=== PATIENT | female | born 1985 | race Two or more races ===

== ENCOUNTER 2017-02-17 13:17 | Emergency (ER) | payer OTHER ==
[~2017-02-17] VITALS: Ht 167.6 cm; Wt 90.7 kg
[2017-02-17 14:30] LABS: Basophils # (auto) 0 uL; Basophils % (auto) 0.4 % (0.0-2.0); CONDITION Y; Eosinophils # (auto) 0.1 uL; Eosinophils % (auto) 1.4 % (0.0-7.0); Hemoglobin 14.4 g/dL (12.2-16.2); Lymphocytes # (auto) 1.3 uL; Lymphocytes % (auto) 12.5 % (10.0-50.0); Mean Corpuscular Hemoglobin 31.3 pg (28.0-32.0); Mean Corpuscular Volume 89.3 fL (80.0-100.0); Monocytes # (auto) 0.4 uL; Monocytes % (auto) 3.5 % (0.0-12.0); Neutrophils # (auto) 8.7 uL; Neutrophils % (auto) 82.2 % (37.0-80.0); Platelet Count (auto) 259 10^3/uL (140-450); Red Cell Distribution Width 12.1 % (11.6-16.0); White Blood Cell 10.5 10^3/uL (4.4-10.8)
[2017-02-17 14:59] LABS: Albumin 3.4 g/dL (3.4-5.0); BUN/Creatinine Ratio 21.2; Bilirubin, Total 0.9 mg/dL (0.2-1.0); Calcium 8.1 mg/dL (8.5-10.1); Total Protein 7.4 g/dL (6.4-8.2)
[2017-02-17 16:34] LABS: Urine Bilirubin Negative (Negative); Urine Blood TRACE /uL (Negative); Urine Color Yellow (Yellow); Urine Nitrite Negative (Negative); Urine RBC <1 /hpf (0 - 4); Urine Squamous Epithelial Cell FEW /hpf (<5); Urine Urobilinogen Normal (Negative)
[2017-02-17 16:44] LABS: Urine Glucose 4+ mg/dL (Normal); Urine Ketone 1+ (Negative)
[2017-02-17] MEDS ORDERED: SODIUM CHLORIDE 0.9% 1,000 ML IV ONE (17:15)
[2017-02-17] MEDS ORDERED: InsuLIN REG 1unit/0.01ml Soln (100units/ml) IV ONE (17:15)
[2017-02-17] MEDS ORDERED: InsuLIN REG 1unit/0.01ml Soln (100units/ml) SC ONE (17:15)
[2017-02-17 20:05] VITALS: BP 126/80
== END 2017-02-17 20:54 | disposition home or self-care (01) ==
LOC: ER 13:17 → EDBD 13:17 → ER 20:54
DX: E10.65 Type 1 diabetes mellitus with hyperglycemia (principal); I10 Essential (primary) hypertension; F41.9 Anxiety disorder, unspecified; Z79.4 Long term (current) use of insulin
CPT/HCPCS: 36415; 80053; 81001; 81025; 82962; 85025; 96361; 96374; 99285; J1815; J7030

== ENCOUNTER 2017-06-23 10:39 | Emergency (ER) | payer OTHER ==
[~2017-06-23] VITALS: Ht 167.6 cm; Wt 108.9 kg
[2017-06-23 15:29] LABS: Urine Bilirubin Negative (Negative); Urine Blood Negative /uL (Negative); Urine Color Yellow (Yellow); Urine Glucose Normal (Normal); Urine Ketone Negative (Negative); Urine Nitrite Negative (Negative); Urine RBC <1 /hpf (0 - 4); Urine Squamous Epithelial Cell FEW /hpf (<5); Urine pH 5.5 (5.0-8.0)
[2017-06-23 15:39] LABS: Basophils # (auto) 0.1 uL; Basophils % (auto) 0.9 % (0.0-2.0); Eosinophils # (auto) 0.2 uL; Eosinophils % (auto) 1.7 % (0.0-7.0); Hematocrit 41.3 % (36.0-46.0); Hemoglobin 14.3 g/dL (12.2-16.2); Lymphocytes # (auto) 2.1 uL; Lymphocytes % (auto) 20.4 % (10.0-50.0); Mean Corpuscular Hemoglobin 31.7 pg (28.0-32.0); Mean Corpuscular Hgb Conc. 34.7 g/dL (32.0-36.0); Mean Corpuscular Volume 91.2 fL (80.0-100.0); Mean Platelet Volume 8.7 fL (6.9-10.8); Monocytes # (auto) 0.7 uL; Monocytes % (auto) 6.7 % (0.0-12.0); Neutrophils # (auto) 7.4 uL; Neutrophils % (auto) 70.3 % (37.0-80.0); Nucleated Red Blood Cells % 0.1 %; Platelet Count (auto) 270 10^3/uL (140-450); Red Cell Distribution Width 12.4 % (11.8-14.3); White Blood Cell 10.5 10^3/uL (4.4-10.8)
[2017-06-23 15:54] LABS: BUN/Creatinine Ratio 18.8; Calcium 9.3 mg/dL (8.5-10.1); Potassium 3.6 mmol/L (3.5-5.1)
[2017-06-23] MEDS ORDERED: SODIUM CHLORIDE 0.9% 1,000 ML IV ONE (15:56)
[2017-06-23 16:40] VITALS: BP 148/94
[2017-06-23 16:44] LABS: Albumin 3.6 g/dL (3.4-5.0); Bilirubin, Direct 0.3 mg/dL (0-0.2); Bilirubin, Total 0.7 mg/dL (0.2-1.0); Magnesium 1.9 mg/dL (1.6-2.6); Total Protein 8.6 g/dL (6.4-8.2)
[2017-06-23 16:51] LABS: INR 0.9 (0.9-1.15); Partial Thromboplastin Time 25.2 sec (22.64-33.71); Prothrombin Time 9.8 sec (9.37-12.3)
== END 2017-06-23 17:40 | disposition home or self-care (01) ==
LOC: ER 10:39
DX: E10.649 Type 1 diabetes mellitus with hypoglycemia without coma (principal); I10 Essential (primary) hypertension; E03.9 Hypothyroidism, unspecified; R74.8 Abnormal levels of other serum enzymes; Z94.4 Liver transplant status
CPT/HCPCS: 36415; 71020; 80048; 80076; 81001; 81025; 83735; 84443; 85025; 85610; 85730; 94761; 96360; 99285; J7030

== ENCOUNTER 2017-08-25 22:37 | Inpatient (IN) | payer OTHER ==
[~2017-08-25] VITALS: Ht 167.6 cm; Wt 118.5 kg
[2017-08-26] MEDS ORDERED: InsuLIN REG 1unit/0.01ml Soln (100units/ml) IV ONE (00:45)
[2017-08-26] MEDS ORDERED: SODIUM CHLORIDE 0.9% 1,000 ML IV ONE (00:45)
[2017-08-26 01:46] LABS: Hematocrit 37.6 % (36.0-46.0); Hemoglobin 12.4 g/dL (12.2-16.2); Mean Corpuscular Hemoglobin 30.4 pg (28.0-32.0); Mean Corpuscular Hgb Conc. 33.1 g/dL (32.0-36.0); Platelet Count (auto) 278 10^3/uL (140-450); Red Blood Cells 4.09 10^6/uL (4.0-5.20); White Blood Cell 28.3 10^3/uL (4.4-10.8)
[2017-08-26 01:52] LABS: Basophils % (manual) 0 (0.0-2.0); Blast Cells 0; Eosinophils % (manual) 0 (0-7); Metamyelocytes % 0; Myelocytes % 0; Promyelocytes % 0; Reactive Lymphocytes 0
[2017-08-26 01:58] LABS: Albumin 2.9 g/dL (3.4-5.0); Calcium 8.3 mg/dL (8.5-10.1); Potassium 4.5 mmol/L (3.5-5.1)
[2017-08-26 02:00] LABS: BUN/Creatinine Ratio 12.7
[2017-08-26] MEDS ORDERED: cefTRIAXone 1GM/10ml IVPUSH 10 ML IV ONE (02:00)
[2017-08-26 02:21] LABS: Band Neutrophils % (manual) 15; Lymphocytes % (manual) 4 (10.0-50.0); Monocytes % (manual) 5 (0-12)
[2017-08-26 02:42] LABS: Urine Bacteria FEW /hpf (None Seen); Urine Blood Negative /uL (Negative); Urine Hyaline Cast MOD /lpf (0 - 2); Urine Mucus FEW (None Seen); Urine WBC 17 /hpf (0 - 5)
[2017-08-26 02:50] LABS: Lactic Acid w/Reflex 2.6 mmol/L (0.4-2.0)
[2017-08-26 03:07] LABS: Total Protein 7.6 g/dL (6.4-8.2)
[2017-08-26] MEDS ORDERED: cefTRIAXone SOD 1,000 MG VL ONE (03:08)
[2017-08-26] MEDS ORDERED: ONDANSETRON HCL 4 MG/2 ML VIAL IV ONE (05:00)
[2017-08-26] MEDS ORDERED: ACETAMINOPHEN 500 MG TAB PO PRN (05:15)
[2017-08-26] MEDS ORDERED: DEXTROSE (50%) 50ML SYRG IV PRN (05:15)
[2017-08-26] MEDS ORDERED: MORPHINE SULFATE 4 MG/ML SYR/VIAL IV PRN (05:15)
[2017-08-26] MEDS ORDERED: NITROGLYCERIN 0.4 MG SL TAB SL PRN (05:15)
[2017-08-26] MEDS ORDERED: METOCLOPRAMIDE HCL 5MG/ml INJ 2ml VIAL IV PRN (05:15)
[2017-08-26] MEDS ORDERED: HYDROcodone-ACET 5/325MG TAB PO PRN (05:15)
[2017-08-26] MEDS ORDERED: SODIUM CHLORIDE 0.9% 2,000 ML IV ONE (05:15)
[2017-08-26] MEDS ORDERED: LORazepam 2MG/ML-1ML VIAL ONE (07:42)
[2017-08-26] MEDS: ACCU-CHEK COMFORT CURVE STRIP VI SCH ×4 (09:41→20:00)
[2017-08-26] MEDS: SODIUM CHLORIDE 0.9% 1,000 ML IV SCH ×2 (09:41→16:59)
[2017-08-26] MEDS: PIPERACILLIN-TAZOB 3.375GM 50 ML IV SCH ×3 (09:41→20:41)
[2017-08-26] MEDS: InsuLIN REG 1unit/0.01ml Soln (100units/ml) SC SCH ×4 (09:48→21:06)
[2017-08-26] MEDS: TACROLIMUS 1 MG CAP PO SCH ×2 (12:26→20:49)
[2017-08-26] MEDS ORDERED: AZITHROMYCIN 500MG/ 250ML 250 ML IV ONE (15:15)
[2017-08-26 16:00] VITALS: BP 127/75
[2017-08-26 16:40] VITALS: BP 127/75
[2017-08-26] MEDS: Boost Glucose Control 8 Ounces PO SCH (18:39)
[2017-08-26 20:00] VITALS: BP 136/82
[2017-08-26] MEDS ORDERED: cefTRIAXone 1GM/10ml IVPUSH 10 ML IV SCH (21:00)
[2017-08-26] MEDS ORDERED: BENA20TA14 PO (21:08)
[2017-08-26] MEDS ORDERED: BENA10TA9 PO (21:08)
[2017-08-26 23:01] VITALS: BP 136/82
[2017-08-26] MEDS ORDERED: TACR5CAP3 PO (23:20)
[2017-08-26] MEDS ORDERED: TACR1CAP4 PO (23:20)
[2017-08-26] MEDS ORDERED: INSLANTI SC (23:20)
[2017-08-26] MEDS ORDERED: INSUINJ18 SC (23:20)
[2017-08-27] MEDS: ACCU-CHEK COMFORT CURVE STRIP VI SCH ×4 (00:07→11:37)
[2017-08-27] MEDS: InsuLIN REG 1unit/0.01ml Soln (100units/ml) SC SCH ×4 (00:08→11:38)
[2017-08-27] MEDS: PIPERACILLIN-TAZOB 3.375GM 50 ML IV SCH ×2 (02:09→08:33)
[2017-08-27] MEDS: SODIUM CHLORIDE 0.9% 1,000 ML IV SCH ×2 (04:07→13:15)
[2017-08-27 05:47] VITALS: BP 125/70
[2017-08-27 07:14] LABS: Basophils # (auto) 0 uL; Basophils % (auto) 0.2 % (0.0-2.0); Eosinophils # (auto) 0.1 uL; Eosinophils % (auto) 0.8 % (0.0-7.0); Hematocrit 35.1 % (36.0-46.0); Hemoglobin 11.8 g/dL (12.2-16.2); Lymphocytes # (auto) 1.4 uL; Lymphocytes % (auto) 8.2 % (10.0-50.0); Mean Corpuscular Hemoglobin 30.7 pg (28.0-32.0); Mean Corpuscular Hgb Conc. 33.7 g/dL (32.0-36.0); Mean Corpuscular Volume 91.2 fL (80.0-100.0); Monocytes # (auto) 0.8 uL; Monocytes % (auto) 4.6 % (0.0-12.0); Neutrophils # (auto) 14.5 uL; Neutrophils % (auto) 86.2 % (37.0-80.0); Nucleated Red Blood Cells % 0.1 %; Platelet Count (auto) 280 10^3/uL (140-450); Red Blood Cells 3.85 10^6/uL (4.0-5.20); Red Cell Distribution Width 12.6 % (11.8-14.3); White Blood Cell 16.8 10^3/uL (4.4-10.8)
[2017-08-27 07:40] LABS: Albumin 2.4 g/dL (3.4-5.0); BUN/Creatinine Ratio 20.5; Bilirubin, Total 0.8 mg/dL (0.2-1.0); Calcium 8.2 mg/dL (8.5-10.1); Potassium 3.7 mmol/L (3.5-5.1); Total Protein 7.1 g/dL (6.4-8.2)
[2017-08-27] MEDS: Boost Glucose Control 8 Ounces PO SCH ×2 (08:24→11:38)
[2017-08-27 08:54] VITALS: BP 124/83
[2017-08-27] MEDS ORDERED: AZITHROMYCIN 500MG/ 250ML 250 ML IV SCH (10:00)
[2017-08-27] MEDS ORDERED: PROMETHAZINE W/CODEINE 5 ML ORAL SYRUP PO PRN (10:15)
[2017-08-27] MEDS ORDERED: AZITHROMYCIN 250 MG TAB PO SCH (11:00)
[2017-08-27] MEDS: TACROLIMUS 1 MG CAP PO SCH (11:30)
[2017-08-27 11:57] VITALS: BP 131/71
[2017-08-27 12:45] VITALS: BP 131/71
[2017-08-27 13:03] VITALS: BP 131/71
== END 2017-08-27 13:40 | disposition home or self-care (01) | DRG 720 ==
LOC: ER 22:38 → TELE 22:39 → TELE-CENTR 08-26 15:42
PROVIDERS: ADMIT Nurse Practitioner Family; ATTEND Internal Medicine
DX: A41.9 Sepsis, unspecified organism (principal); N17.0 Acute kidney failure with tubular necrosis; E10.10 Type 1 diabetes mellitus with ketoacidosis without coma; E44.0 Moderate protein-calorie malnutrition; Z94.4 Liver transplant status; N18.4 Chronic kidney disease, stage 4 (severe); J18.1 Lobar pneumonia, unspecified organism; E10.21 Type 1 diabetes mellitus with diabetic nephropathy; E87.1 Hypo-osmolality and hyponatremia; Z68.41 Body mass index [BMI] 40.0-44.9, adult; E66.9 Obesity, unspecified; J02.9 Acute pharyngitis, unspecified; E86.0 Dehydration; I12.9 Hypertensive chronic kidney disease with stage 1 through stage 4 chronic kidney disease, or unspecified chronic kidney disease; E10.22 Type 1 diabetes mellitus with diabetic chronic kidney disease; N39.0 Urinary tract infection, site not specified; Z82.49 Family history of ischemic heart disease and other diseases of the circulatory system; Z83.3 Family history of diabetes mellitus
CPT/HCPCS: 36415; 74176; 76775; 80053; 81001; 81025; 82010; 82962; 83036; 83605; 84443; 85007; 85025; 85027; 87040; 87086; 87400; 93005; 96361; 96374; 96375; J0696; J1815; J2405; J2543; J7507

== ENCOUNTER 2018-12-03 08:25 | Inpatient (IN) | payer OTHER | END 2018-12-05 19:30 | disposition home or self-care (01) | LOC: ER 08:25 → TELE 14:52 → TELE-EAST 17:30 | DX: A41.9 Sepsis, unspecified organism (principal); N17.0 Acute kidney failure with tubular necrosis; Z94.4 Liver transplant status; E13.9 Other specified diabetes mellitus without complications; E03.9 Hypothyroidism, unspecified; I10 Essential (primary) hypertension; K52.9 Noninfective gastroenteritis and colitis, unspecified; E87.1 Hypo-osmolality and hyponatremia; N39.0 Urinary tract infection, site not specified; E66.01 Morbid (severe) obesity due to excess calories; Z68.41 Body mass index [BMI] 40.0-44.9, adult ==

== ENCOUNTER 2020-01-31 16:26 | Inpatient (IN) | payer OTHER ==
[~2020-01-31] VITALS: Ht 167.6 cm; Wt 116.0 kg
[2020-01-31] MEDS: MIDAZOLAM DRIP 50 mg/50mL 50 ML IV SCH (01:07)
[2020-01-31] MEDS: PROPOFOL 100 ML IV SCH (01:08)
[2020-01-31] MEDS: SODIUM CHLORIDE 0.9% 1,000 ML IV SCH ×3 (03:00→21:09)
[~2020-01-31 16:26] MED LIST: INSLANTI SC; INSUINJ18 SC; LEVO75TA6; TACR1CAP4 PO; TACR5CAP3 PO
[2020-01-31] MEDS ORDERED: SODIUM CHLORIDE 0.9% 1,000 ML IV ONE ×2 (17:30→18:45)
[2020-01-31] MEDS ORDERED: SODIUM CHLORIDE 0.9% 1,000 ML IVB ONE (17:48)
[2020-01-31 17:49] LABS: Urine Bacteria MOD /hpf (None Seen); Urine Blood 1+ /uL (Negative); Urine Budding Yeast MANY /hpf (None Seen); Urine Specific Gravity 1.022 (1.001-1.035); Urine WBC 52 /hpf (0 - 5)
[2020-01-31 18:04] LABS: Hematocrit 45.9 % (36.0-46.0); Hemoglobin 13.9 g/dL (12.2-16.2); Mean Corpuscular Hgb Conc. 30.4 g/dL (32.0-36.0); Platelet Count (auto) 445 10^3/uL (140-450); Red Cell Distribution Width 15.3 % (11.8-14.3); White Blood Cell 21.9 10^3/uL (4.4-10.8)
[2020-01-31 18:07] LABS: Basophils % (manual) 0 (0.0-2.0); Blast Cells 0; Eosinophils % (manual) 0 (0-7); Promyelocytes % 0; Reactive Lymphocytes 0
[2020-01-31 18:20] LABS: Albumin 3.2 g/dL (3.4-5.0)
[2020-01-31 18:31] LABS: BUN/Creatinine Ratio 21.9; Bilirubin, Total 2.2 mg/dL (0.2-1.0); Total Protein 8.2 g/dL (6.4-8.2)
[2020-01-31 18:34] LABS: Potassium 6.1 mmol/L (3.5-5.1)
[2020-01-31] MEDS ORDERED: SODIUM CHLORIDE 0.9% 1,000 ML IV SCH ×2 (18:35→22:35)
[2020-01-31] MEDS ORDERED: InsuLIN R (HUMAN) 100 UNITS in SODIUM CHL 0.9% 99 ML IV SCH ×5 (18:35→21:09)
[2020-01-31] MEDS ORDERED: DEXTROSE (50%) 50ML SYRG IV PRN ×2 (18:45→21:15)
[2020-01-31] MEDS ORDERED: cefTRIAXone 1GM/50ML D5W 50 ML IV ONE (18:45)
[2020-01-31] MEDS ORDERED: SODIUM BICARBONATE 8.4 % INJ 50ML VIAL IV ONE ×3 (19:00→21:45)
[2020-01-31] MEDS ORDERED: SODIUM BICARBONATE 8.4% INJ 50ML SYRINGE ONE (19:03)
[2020-01-31] MEDS ORDERED: ACCU-CHEK COMFORT CURVE STRIP VI SCH (19:30)
[2020-01-31 19:40] LABS: Band Neutrophils % (manual) 6; Lymphocytes % (manual) 7 (10.0-50.0); Metamyelocytes % 1; Monocytes % (manual) 2 (0-12); Myelocytes % 2
[2020-01-31] MEDS ORDERED: HYDROcodone-ACET 5/325MG TAB PO PRN (21:15)
[2020-01-31] MEDS ORDERED: NITROGLYCERIN 0.4 MG SL TAB SL PRN (21:15)
[2020-01-31] MEDS ORDERED: MORPHINE SULF INJ 2 MG/ML SYRINGE 1ML IV PRN ×2 (21:15)
[2020-01-31] MEDS ORDERED: ACETAMINOPHEN 325 MG TAB PO PRN (21:15)
[2020-01-31] MEDS ORDERED: ONDANSETRON HCL 4 MG/2 ML VIAL IV PRN (21:15)
[2020-01-31] MEDS ORDERED: DOCUSATE SOD 100 MG CAP PO PRN (21:15)
[2020-01-31] MEDS ORDERED: INSULIN LANTUS (GLARGINE) 1 /0.01ml (100units/ml) SC SCH (22:00)
[2020-01-31 22:14] LABS: Hematocrit 43.3 % (36.0-46.0); Mean Corpuscular Hemoglobin 31.3 pg (28.0-32.0); Mean Corpuscular Volume 104.3 fL (80.0-100.0); Platelet Count (auto) 479 10^3/uL (140-450); Red Blood Cells 4.15 10^6/uL (4.0-5.20); Red Cell Distribution Width 15.7 % (11.8-14.3); White Blood Cell 28.3 10^3/uL (4.4-10.8)
[2020-01-31 22:20] LABS: Basophils % (manual) 0 (0.0-2.0); Blast Cells 0; Eosinophils % (manual) 0 (0-7); Metamyelocytes % 0; Promyelocytes % 0; Reactive Lymphocytes 0
[2020-01-31] MEDS: ACCU-CHEK COMFORT CURVE STRIP VI SCH (22:30)
[2020-01-31 22:35] LABS: Anion Gap 26 (5-15); BUN/Creatinine Ratio 22.9; Blood Urea Nitrogen 35 mg/dL (7-18); Calcium 8.5 mg/dL (8.5-10.1); Chloride 93 mmol/L (98-107); GFR African American 50 mL/min; GFR Non-African American 41 mL/min; Magnesium 2.3 mg/dL (1.6-2.6); Sodium 125 mmol/L (136-145)
[2020-01-31 22:58] LABS: Phosphorus 6.7 mg/dL (2.5-4.90)
[2020-01-31 22:59] LABS: Potassium 5.8 mmol/L (3.5-5.1)
[2020-01-31 23:00] LABS: Carbon Dioxide 6 mmol/L (21-32); Glucose 635 mg/dL (74-106)
[2020-01-31] MEDS ORDERED: SUCCINYLCHOLINE CHLORIDE 20 MG/ML 10ML VIAL IV ONE (23:15)
[2020-01-31] MEDS ORDERED: ETOMIDATE (2MG/ML) 20ML VIAL IV ONE (23:15)
[2020-01-31 23:19] LABS: Band Neutrophils % (manual) 5; Lymphocytes % (manual) 2 (10.0-50.0); Monocytes % (manual) 4 (0-12); Myelocytes % 2
--- NOTE | 2020-01-31 23:30 | NUR ---
Respiratory note: PT PLACED ON BIPAP B7 AT THIS TIME DUE TO INCREASED WOB POST ABG RESULTS, PT REFUSING INTUBATION AT THIS TIME. BIPAP PLUGGED INTO RED OUTLET, ALARMS ON AND AUDIBLE, AMBU BAG AND MASK AT BEDSIDE. PT FITTED WITH A SIZE MEDIUM FULL FACE MASK, NO SKIN BREAKDOWN NOTED. PT RR NOTED AT 39, DR. MENCHACA AWARE. PT BS DIMINISHED. PT STATES MASK FIT IS COMFORTABLE. PT MADE AWARE OF THE NEED FOR EMERGENT INTUBATION IF RESPIRATORY STATUS DOES NOT IMPROVE, DR. MENCHACA EXPLAINED PLAN OF CARE TO PT. PT AGREED ON INTUBATION IF RESPIRATORY STATUS DOES NOT IMPROVE OR WOB INCREASES. RN AWARE OF CARE PLAN. PT ON CONT BEDSIDE MONITORING, WILL CONTINUE TO MONITOR ORDERED, REPEAT ABG IN ONE HOUR.
[2020-02-01] VITALS (80 sets, daily range): BP systolic 94–154; BP diastolic 46–160
[2020-02-01] MEDS ORDERED: SODIUM BICARBONATE 50ML VIAL 50 ML in SOD CHL 0.45% 1,000 ML IV ONE ×2
--- NOTE | 2020-02-01 00:32 | NUR ---
Respiratory note: PAGED TO BEDSIDE, PT'S RESPIRATORY STATUS NOT IMPROVING. AT BEDSIDE TO PREPARE FOR INTUBATION.
[2020-02-01] MEDS ORDERED: SODIUM CHLORIDE 0.9% 1,000 ML IV SCH ×3 (00:35→03:09)
--- NOTE | 2020-02-01 00:45 | NUR ---
Respiratory note: PT ASKED FOR JELLO PRIOR TO INTUBATION, I TOLD PT SHE COULD NOT EAT PRIOR TO INTUBATION DUE TO RISK OF VOMITING. DR. MENCHACA GAVE THE PATIENT YELLOW JELLO, STATED TO WAIT FOR PT TO FINISH EATING BEFORE INTUBATION. PT SITTING UP IN BED EATING, NO RESPIRATORY DISTRESS NOTED AT THIS TIME, AT BEDSIDE, ON STANDBY FOR INTUBATION.
[2020-02-01] MEDS ORDERED: SODIUM BICARBONATE 8.4% INJ 50ML SYRINGE ONE (00:53)
--- NOTE | 2020-02-01 01:05 | NUR ---
Respiratory note: PT INTUBATED VIA GLIDESCOPE ON SECOND ATTEMPT. AFTER FIRST ATTEMPT, PT VOMITED UP JELLO/WATER. PT MOUTH SUCTIONED, CLEAR/YELLOW THIN SECRETIONS NOTED UPON RETURN. PT INTUBATED WITH A 7.5 ETT SECURED WITH YANNICK AT 24CM, RADIOLOGY WILL RETURN TO BEDSIDE FOR CHEST XRAY AFTER CENTRAL LINE PLACEMENT. PT BS CLEAR/COARSE, SUCTIONED SMALL THIN CLEAR/YELLOW/ORANGE SECRETIONS. SPUTUM SENT TO LAB. ABG TO FOLLOW IN ONE HOUR.
[2020-02-01] MEDS ORDERED: NOREPINEPHRINE 8 MG/250ML KIT 250 ML IV ONE (01:59)
[2020-02-01] MEDS: NOREPINEPHRINE 8 MG/250ML KIT 250 ML IV SCH (02:00)
--- NOTE | 2020-02-01 02:05 | NUR ---
Respiratory note: ET TUBE RETRACTED 4CM AFTER REVIEWING CHEST XRAY, RN AWARE. ET TUBE NOW AT 20CM AT THE LOWER LIP, BILATERAL BS HEARD THROUGHOUT LUNG STILL, LUNG VOLUMES ON VENTILATOR SATISFACTORY.
[2020-02-01] MEDS: ACCU-CHEK COMFORT CURVE STRIP VI SCH ×16 (02:30→22:26)
--- NOTE | 2020-02-01 02:38 | NUR ---
Respiratory note: ABG RESULTS REPORTED TO DR. MENCHACA. NO NEW RESPIRATORY ORDERS GIVEN AT THIS TIME. FIO2 TITRATED TO 60%.
[2020-02-01] MEDS: SODIUM CHLORIDE 0.9% 1,000 ML IV SCH ×5 (03:00→23:00)
--- NOTE | 2020-02-01 03:00 | NUR ---
RN RECEIVED PATIENT FROM ER. PATIENT WITH ETT TUBE 7.5/ 20CM LL. OG TUBE IN PLACE, CLAMPED AND PLACEMENT VERIFIED. PATIENT CURRENTLY RESTING IN BED AND RUNNING INSULIN DRIP, BICARB, PROPOFOL, VERSED. LINEN CHANGE AND BED BATH PROVIDED UPON ARRIVAL. PATIENT TOLERATED NURSING INTERVENTIONS WELL.
[2020-02-01] MEDS ORDERED: InsuLIN REG 1unit/0.01ml Soln (100units/ml) ONE (03:19)
--- NOTE | 2020-02-01 04:00 | NUR ---
HOSPITALIST PAGED TO CLARIFY IV FLUID ORDERS.
[2020-02-01 04:40] LABS: Basophils # (auto) 0.1 10 ^3/uL (0-0.2); Basophils % (auto) 0.7 % (0.0-2.0); Eosinophils # (auto) 0 10 ^3/uL (0-0.8); Eosinophils % (auto) 0.1 % (0.0-7.0); Hematocrit 37.5 % (36.0-46.0); Hemoglobin 12.5 g/dL (12.2-16.2); Lymphocytes # (auto) 1.2 10 ^3/uL (0.4-5.4); Lymphocytes % (auto) 6.3 % (10.0-50.0); Mean Corpuscular Hemoglobin 30.9 pg (28.0-32.0); Mean Corpuscular Hgb Conc. 33.3 g/dL (32.0-36.0); Mean Corpuscular Volume 92.6 fL (80.0-100.0); Monocytes # (auto) 0.7 10 ^3/uL (0-1.3); Monocytes % (auto) 3.3 % (0.0-12.0); Neutrophils # (auto) 17.6 10 ^3/uL (1.6-8.6); Neutrophils % (auto) 89.6 % (37.0-80.0); Nucleated Red Blood Cells % 0.1 %; Platelet Count (auto) 386 10^3/uL (140-450); Red Blood Cells 4.05 10^6/uL (4.0-5.20); Red Cell Distribution Width 14.3 % (11.8-14.3); White Blood Cell 19.6 10^3/uL (4.4-10.8)
[2020-02-01 04:41] LABS: Calcium 7.7 mg/dL (8.5-10.1)
[2020-02-01 04:43] LABS: BUN/Creatinine Ratio 27.6
--- NOTE | 2020-02-01 05:07 | NUR ---
HOSPITALIST PAGED BACK. IV FLUID ORDERS VERIFIED.
[2020-02-01 05:39] LABS: Cholesterol 280 mg/dL (< 200)
[2020-02-01 05:42] LABS: HDL Cholesterol 48 mg/dL (40-59); LDL Cholesterol 173 mg/dL (< 100); Triglycerides 293 mg/dL (< 150)
--- NOTE | 2020-02-01 05:49 | NUR ---
[employer] Teacher took patient's belonging to safe which included fishman and debit cards and wallet.
--- NOTE | 2020-02-01 07:30 | NUR ---
ACCU CHECK DONE BLOOD SUGAR WAS 204, INSULIN DRIP DECREASED TO 2 UNITS/HR.
--- NOTE | 2020-02-01 09:00 | NUR ---
ACCU CHECK DONE BLOOD SUGAR WAS 209, INSULIN DRIP REMAINS AT 2 UNITS/HR.
[2020-02-01 09:30] LABS: BUN/Creatinine Ratio 24.8; Calcium 7.5 mg/dL (8.5-10.1); Potassium 3.6 mmol/L (3.5-5.1)
[2020-02-01] MEDS ORDERED: INSULIN LANTUS (GLARGINE) 1 /0.01ml (100units/ml) SC SCH (10:00)
--- NOTE | 2020-02-01 10:30 | NUR ---
ACCU CHECK DONE BLOOD SUGAR WAS 225, INSULIN DRIP AT 4 UNITS/HR.
[2020-02-01] MEDS ORDERED: InsuLIN R (HUMAN) 100 UNITS in SODIUM CHL 0.9% 99 ML IV SCH ×2 (10:36→15:40)
[2020-02-01] MEDS: PROPOFOL 100 ML IV SCH (10:46)
[2020-02-01] MEDS: MIDAZOLAM DRIP 50 mg/50mL 50 ML IV SCH ×3 (10:47→15:49)
--- NOTE | 2020-02-01 11:12 | NUR ---
Consult If EN Support indicated consider Glucerna @ 55ml/hr, if BERNARDINO resolves and propofol rate decreases consider increasing rate to 65 ml/hr per MD approval Est energy needs 0034-1600 kcal (14-18 kcal/kg BW 115.3kg) Est protein 69-92g (0.6-0.8g/kg BW 115kg r/t elevated RFTs) Will reassess prn. Addendum: 02/01/20 at [address] Amended: Links added.
--- NOTE | 2020-02-01 12:00 | NUR ---
ACCU CHECK DONE BLOOD SUGAR WAS 196, INSULIN DRIP AT 3 UNITS/HR.
[2020-02-01] MEDS ORDERED: FLUCONAZOLE 200MG/100ML 100 ML IV ONE (13:00)
[2020-02-01] MEDS ORDERED: FAMOTIDINE (10MG/ML) 2ML VL IV ONE ×2 (13:00→13:45)
--- NOTE | 2020-02-01 13:16 | NUR ---
WOUND CARE NOTE: Wound care in to see patient per wound care request regarding low Kamron score of 10 and intubation status, putting patient to high risk for skin breakdown. Patient is 34 years old female with admitting diagnosis of DKA, Severe Metabolic Encephalopathy and Htn. Patient is resting in ICU bed in Rm. 112. Patient is intubated, sedated and mechanically ventilated. Patient appears to be in no pain using [place] Yates Faces Pain Scale. Skin assessment done with the assistance of patient's nurse, GELY Dhillon. NO wound noted, no pressure injury noted. Staff initiated cleaning and application of Barrier cream to sacral buttocks and Opti foam sacral dressing to upper sacrum as preventative. Patient tolerated well, repositioned for comfort facing her Rt. side, redistributed pressure points with pillows and elevated BLE on pillows. RECOMMENDATION: Nursing to continue with BID/PRN cleaning and application of Barrier cream to sacral, buttocks as preventative, Dietary consult, frequent turning and repositioning schedule as condition permits, redistribute pressure points with pillows, elevate heels on pillows, continue monitoring by wound care while patient is mechanically ventilated. Addendum: 02/01/20 at 1425 by Fatoumata Zaragoza RN Amended: Links added.
--- NOTE | 2020-02-01 13:30 | NUR ---
ACCU CHECK DONE BLOOD SUGAR WAS 213, INSULIN DRIP AT 4 UNITS/HR.
[2020-02-01] MEDS ORDERED: ENOXAPARIN SOD 40 MG/0.4 ML SYRINGE SC ONE (13:45)
[2020-02-01] MEDS ORDERED: TACROLIMUS 1 MG CAP PO ONE (13:45)
[2020-02-01] MEDS: PIPERACILLIN-TAZOB 3.375GM 100 ML IV SCH ×2 (13:46→22:00)
--- NOTE | 2020-02-01 15:00 | NUR ---
ACCU CHECK DONE BLOOD SUGAR WAS 184, INSULIN DRIP AT 5 UNITS/HR. PATIENT CURRENTLY ON ALGORITHM #3
[2020-02-01 15:24] LABS: BUN/Creatinine Ratio 20.3; Calcium 7.4 mg/dL (8.5-10.1); Potassium 3.3 mmol/L (3.5-5.1)
--- NOTE | 2020-02-01 16:30 | NUR ---
ACCU CHECK DONE BLOOD SUGAR WAS 130, INSULIN DRIP AT 3 UNITS/HR. PATIENT CURRENTLY ON ALGORITHM #3
[2020-02-01 18:03] LABS: Urine Bacteria MANY /hpf (None Seen); Urine Blood 2+ /uL (Negative); Urine Budding Yeast LOADED /hpf (None Seen); Urine Specific Gravity 1.013 (1.001-1.035); Urine WBC 388 /hpf (0 - 5)
[2020-02-01] MEDS: POTASSIUM CHL 20MEQ/100ML 100 ML IV SCH ×2 (19:00→21:00)
--- NOTE | 2020-02-01 19:00 | NUR ---
Opening shift note: Primary RN Huy received report on patient. Pt intubated ETT 7.5/20cm@LL, vent settings: AC 14/TV 500, FIO2 30%/PEEP 5, O2 SAT 100%, bilateral lung sounds diminished. Central line right IJ 3 lumen, infusing Insulin drip @ 2, NS @ 100, Propofol @ 30, Versed @ 15, Levo @ 4. OG tube clamped, placement checked. Mccallum catheter draining via gravity with yellow urine. Temp 99.1, rectal probe in place. Safety precautions in place. Will continue to monitor.
--- NOTE | 2020-02-01 21:57 | NUR ---
IV removal IV to left hand DC'd d/t infiltration with sterile technique, catheter fully intact. Pressure dressing applied to site. Patient tolerated procedure well.
[2020-02-01] MEDS: TACROLIMUS 1 MG CAP PO SCH (21:59)
[2020-02-01] MEDS: FAMOTIDINE (10MG/ML) 2ML VL IV SCH (21:59)
[2020-02-02] VITALS (99 sets, daily range): BP systolic 86–149; BP diastolic 44–89
[2020-02-02] MEDS: NOREPINEPHRINE 8 MG/250ML KIT 250 ML IV SCH
[2020-02-02] MEDS: ACCU-CHEK COMFORT CURVE STRIP VI SCH ×11 (01:30→18:02)
--- NOTE | 2020-02-02 03:00 | NUR ---
Bed bath: Patient was given a bed bath with a linen change. Patient tolerated nursing interventions well.
[2020-02-02 04:17] LABS: Basophils # (auto) 0.1 10 ^3/uL (0-0.2); Basophils % (auto) 1.3 % (0.0-2.0); Eosinophils # (auto) 0.1 10 ^3/uL (0-0.8); Eosinophils % (auto) 1.3 % (0.0-7.0); Hematocrit 36.1 % (36.0-46.0); Lymphocytes # (auto) 1.8 10 ^3/uL (0.4-5.4); Lymphocytes % (auto) 16.6 % (10.0-50.0); Mean Corpuscular Hemoglobin 30.5 pg (28.0-32.0); Mean Corpuscular Hgb Conc. 33.1 g/dL (32.0-36.0); Monocytes # (auto) 0.7 10 ^3/uL (0-1.3); Monocytes % (auto) 6.7 % (0.0-12.0); Neutrophils # (auto) 8.2 10 ^3/uL (1.6-8.6); Neutrophils % (auto) 74.1 % (37.0-80.0); Platelet Count (auto) 328 10^3/uL (140-450); Red Blood Cells 3.93 10^6/uL (4.0-5.20)
[2020-02-02 04:37] LABS: INR 0.91 (0.9-1.15); Partial Thromboplastin Time 25.1 sec (23.64-32.05)
[2020-02-02 04:40] LABS: Potassium 3.8 mmol/L (3.5-5.1)
[2020-02-02] MEDS: MIDAZOLAM DRIP 50 mg/50mL 50 ML IV SCH ×4 (04:42→21:00)
[2020-02-02] MEDS: PROPOFOL 100 ML IV SCH ×4 (04:42→21:00)
[2020-02-02 04:48] LABS: Albumin 2.1 g/dL (3.4-5.0); BUN/Creatinine Ratio 18.5; Bilirubin, Total 1.4 mg/dL (0.2-1.0); Calcium 7.8 mg/dL (8.5-10.1); Total Protein 6.1 g/dL (6.4-8.2)
[2020-02-02] MEDS: PIPERACILLIN-TAZOB 3.375GM 100 ML IV SCH ×3 (05:48→21:35)
--- NOTE | 2020-02-02 08:00 | NUR ---
INSULIN GTT Blood glucose 151 increased Insulin GTT to 4UNITS=4mls per protocol.
[2020-02-02] MEDS: SODIUM CHLORIDE 0.9% 1,000 ML IV SCH ×2 (09:00→19:00)
--- NOTE | 2020-02-02 09:19 | NUR ---
INSULIN GTT Blood glucose 133, Insulin GTT decreased to 3UNITS=3mls per protocol.
[2020-02-02] MEDS: ENOXAPARIN SOD 40 MG/0.4 ML SYRINGE SC SCH (09:42)
[2020-02-02] MEDS: FAMOTIDINE (10MG/ML) 2ML VL IV SCH ×2 (09:42→21:35)
[2020-02-02] MEDS: TACROLIMUS 1 MG CAP PO SCH ×2 (09:43→21:35)
[2020-02-02] MEDS ORDERED: FLUCONAZOLE 200MG/100ML 100 ML IV SCH (10:00)
--- NOTE | 2020-02-02 10:30 | NUR ---
INSULIN GTT Blood glucose 136, Insulin GTT continues at current rate of 3 UNITS= 3Ml per protocol.
[2020-02-02] MEDS ORDERED: INSULIN LANTUS (GLARGINE) 1 /0.01ml (100units/ml) SC ONE (11:15)
--- NOTE | 2020-02-02 12:00 | NUR ---
INSULIN GTT Blood glucose 123, INSULIN GTT continues to infuse at current rate per protocol.
--- NOTE | 2020-02-02 13:30 | NUR ---
INSULIN GTT INSULIN GTT turned off and blood glucose 117.
[2020-02-02] MEDS ORDERED: DEXTROSE (50%) 50ML SYRG IV PRN (13:45)
--- NOTE | 2020-02-02 14:00 | NUR ---
MD Dr. Nash at bedside updated on patient condition with new orders, MD to input into system.
--- NOTE | 2020-02-02 15:50 | NUR ---
FAMILY Received phone call from patients mother, correct password provided and updated on patient condition.
[2020-02-02] MEDS: InsuLIN REG 1unit/0.01ml Soln (100units/ml) SC SCH (18:04)
--- NOTE | 2020-02-02 19:00 | NUR ---
Opening shift note: Primary RN Huy received report on patient. Pt intubated ETT 7.5/20cm@LL, vent settings: AC 14/TV 500, FIO2 30%/PEEP 5, O2 SAT 100%, bilateral lung sounds diminished. Central line right IJ 3 lumen, infusing, NS @ 100, Propofol @ 15, Versed @ 8. OG tube clamped, placement checked. Mccallum catheter draining via gravity with yellow urine. Temp 98.6, rectal probe in place. Safety precautions in place. Will continue to monitor.
--- NOTE | 2020-02-02 19:27 | NUR ---
Family: RN spoke with patient's mother and password was verified. Patient's mother was given an update and was also asked about patient's history of having a liver transplant. Per Madeline (Mother), patient developed severe inflammation of her liver and her liver began to fail and a liver transplant was required. Per the mother, the patient never acquired any form of hepatitis as a child or adult, nor does she recall the patient developing any form of infection when the liver transplant was deemed necessary.
--- NOTE | 2020-02-02 20:40 | NUR ---
Rectal probe changed. RN changed patient's rectal probe due to in accurate readings. Patient was noted to have a temp of 98.8 and suddenly drop to 97.3. RN changed probe and patient tolerated nursing intervention well with no s/s of discomfort or distress.
[2020-02-03] VITALS (91 sets, daily range): BP systolic 93–168; BP diastolic 48–94
[2020-02-03] MEDS: ACCU-CHEK COMFORT CURVE STRIP VI SCH ×3 (00:08→14:28)
[2020-02-03] MEDS: InsuLIN REG 1unit/0.01ml Soln (100units/ml) SC SCH ×3 (00:11→14:29)
[2020-02-03] MEDS: NOREPINEPHRINE 8 MG/250ML KIT 250 ML IV SCH (02:00)
--- NOTE | 2020-02-03 04:00 | NUR ---
Linen change performed. Patient tolerated interventions well with no s/s of discomfort or distress.
[2020-02-03 04:23] LABS: Basophils # (auto) 0.1 10 ^3/uL (0-0.2); Basophils % (auto) 0.9 % (0.0-2.0); Eosinophils # (auto) 0.1 10 ^3/uL (0-0.8); Eosinophils % (auto) 1.3 % (0.0-7.0); Hemoglobin 11.8 g/dL (12.2-16.2); Lymphocytes # (auto) 1.5 10 ^3/uL (0.4-5.4); Lymphocytes % (auto) 21.1 % (10.0-50.0); Mean Corpuscular Hemoglobin 31.6 pg (28.0-32.0); Mean Corpuscular Hgb Conc. 33.7 g/dL (32.0-36.0); Mean Corpuscular Volume 93.6 fL (80.0-100.0); Monocytes # (auto) 0.4 10 ^3/uL (0-1.3); Monocytes % (auto) 6.4 % (0.0-12.0); Neutrophils # (auto) 4.9 10 ^3/uL (1.6-8.6); Neutrophils % (auto) 70.3 % (37.0-80.0); Platelet Count (auto) 259 10^3/uL (140-450); Red Blood Cells 3.74 10^6/uL (4.0-5.20)
[2020-02-03 04:46] LABS: Calcium 7.8 mg/dL (8.5-10.1); Potassium 3.5 mmol/L (3.5-5.1)
[2020-02-03 04:50] LABS: BUN/Creatinine Ratio 16.3; Bilirubin, Total 1.2 mg/dL (0.2-1.0); Total Protein 5.9 g/dL (6.4-8.2)
[2020-02-03] MEDS: SODIUM CHLORIDE 0.9% 1,000 ML IV SCH (05:00)
[2020-02-03] MEDS: PIPERACILLIN-TAZOB 3.375GM 100 ML IV SCH ×3 (05:17→21:49)
[2020-02-03] MEDS: FAMOTIDINE (10MG/ML) 2ML VL IV SCH ×2 (09:44→21:49)
[2020-02-03] MEDS: FLUCONAZOLE 200MG/100ML 100 ML IV SCH ×2 (09:44→11:04)
[2020-02-03] MEDS: ENOXAPARIN SOD 40 MG/0.4 ML SYRINGE SC SCH (09:45)
[2020-02-03] MEDS: TACROLIMUS 1 MG CAP PO SCH ×2 (09:46→21:49)
[2020-02-03] MEDS ORDERED: LABETALOL HCL 5 MG/ML 4ML SYRINGE IV PRN (11:30)
--- NOTE | 2020-02-03 12:00 | NUR ---
TEMPERATURE Patients temperature reached 100.4 Tylenol given as ordered by .
--- NOTE | 2020-02-03 12:10 | NUR ---
RESPIRATORY RT Sylvie at bedside placed patient on CPAP mode patient tolerating well sating 100%. Will continue to monitor patient.
--- NOTE | 2020-02-03 12:10 | NUR ---
INITIATED CPAP TRIAL PT IS MORE AWAKE/ALERT AND FOLLOWS SIMPLE COMMANDS. INITIATED CPAP TRIAL ORDERED. PT TOLERATING WELL, HR 92, RR 24, SPO2 100%, BP 150/87. NO S/S OF RESPIRATORY DISTRESS NOTED. ABG TO FOLLOW IN ONE HOUR. NOTIFIED RN OF CHANGES. WILL CONTINUE TO MONITOR.
--- NOTE | 2020-02-03 12:40 | NUR ---
FAMILY Received phone call from patients sister Aminata, correct password provided and updated on patient condition.
--- NOTE | 2020-02-03 13:30 | NUR ---
TEMPERATURE Patients temperature reached 100.8 cooling measures applied.
--- NOTE | 2020-02-03 13:40 | NUR ---
WEANING PARAMETERS OBTAINED: NIF -33, VC 961ML, RSBI 56, LEAK 44ML. ABG DRAWN AND RESULTS OBTAINED. PAGED DR MARIE TO REPORT RESULTS, AWAITING CALL BACK.
[2020-02-03] MEDS ORDERED: EPINEPHrine HCL 0.5 ML NEB NEB ONE (14:15)
--- NOTE | 2020-02-03 14:55 | NUR ---
EXTUBATED Pt was extubated per Dr. Corley's orders, with RN Alecia at bedside. Extubated to cool mist aerosol mask, FIO2 30%. HR 101, RR 25, SPO2 100%, BP 150/85. No stridor noted. No s/s of respiratory distress noted.
--- NOTE | 2020-02-03 14:55 | NUR ---
RESPIRATORY RT Sylvie at bedside extubated patient per MD orders. Patient placed on cool mist mask with no stridor. Sating 100%. Will continue to monitor patient.
--- NOTE | 2020-02-03 15:50 | NUR ---
Nutrition Followup Notes Pt wt is 125.2 kg Pt's intubated on mech vent, currently NPO, sedation cancelled d/t scheduled CPAP trial. Noted pt was extubated, CPAP trial well tolerated. Will continue to closely monitor pertinent labs, PO intake and skin status prn. Will followup in 2-3 days Est energy needs 6791-9638 kcal (14-18 kcal/kg BW 115.3kg) Est protein 69-92g (0.6-0.8g/kg BW 115kg r/t elevated RFTs) Will reassess prn. LABS: CL 113 H, GLUC 178 H, CA 7.8 L, ALB 2.0 L GI: No BM Noted BS: 10 high risk. Please refer to wound assessment report for full details. PES: Problem Altered nutrition related labs r/t current and chronic medical conditions aeb elevated RFTs, hyperglycemia Malnutrition related to morbid BMI> or equal to 40 Malnutrition related to morbid obesity Yes Comments 1) Continue to monitor po status, lab, skin 2) If EN Support initiated consider Glucerna @ 55ml/hr, if BERNARDINO resolves and propofol rate decreases consider increasing rate to 65 ml/hr per MD approval 3) Refer pt to CDE on dc 4) Continue current plan of care
--- NOTE | 2020-02-03 16:00 | NUR ---
MENSTRUAL Patients menstrual started, manuel care provided and partial linen change done with the assistance of [facility] special investigation unit investigator.Patient tolerated well. Cooling measure re-applied.
--- NOTE | 2020-02-03 16:34 | NUR ---
Still no stridor noted. Took pt off cool aerosol, placed on 2lpm nasal cannula, SPO2 100%. No s/s of respiratory distress noted.
--- NOTE | 2020-02-03 16:34 | NUR ---
RESPIRATORY RT Sylvie at bedside placed patient on nasal cannula at 2 liters: sating 100%, will continue to monitor patient.
--- NOTE | 2020-02-03 17:15 | NUR ---
assessment Patient is a 34 year old female on vent in ICU. Per patients uncle Jaren prior to admission patient lived home with family and functioned with assistance. Per Jaren patients blood sugars were out of control and patients sister drove her to ER and patient was admitted. I informed Jaren patients post discharge needs to be determined after extubation and prior to discharge. Jaren verbalized understanding. Addendum: 02/03/20 at 1717 by Katlyn [place] Amended: Links added.
--- NOTE | 2020-02-03 19:00 | NUR ---
Opening Shift Note: Assumed care of patient, awake and alert to self at this time, patient able to answer closed ended questions. No S/S of distress/SOB or pain. Instructed on POC and to call for assist PRN, will continue to monitor for changes Q1hr and PRN.
--- NOTE | 2020-02-03 20:00 | NUR ---
Family: Patient's mom "Madeline" called, password verified. Madeline was given an update on patient condition. All questions and concerns answered.
--- NOTE | 2020-02-03 20:30 | NUR ---
Rectal temp: Patient's rectal temp was noted to be reading 100.8. Patient felt very cool. RN took an oral temp and received a reading of 98.6. Rectal probe was removed. Patient was repositioned for comfort.
--- NOTE | 2020-02-03 21:00 | NUR ---
Dinner: Patient was able to tolerate three spoons of food and 100mL of her milk. Patient did not have any difficulty swallowing at this time.
[2020-02-03] MEDS: MIDAZOLAM DRIP 50 mg/50mL 50 ML IV SCH (23:08)
[2020-02-03] MEDS: PROPOFOL 100 ML IV SCH (23:08)
[2020-02-04] VITALS (29 sets, daily range): BP systolic 108–152; BP diastolic 63–98
[2020-02-04] MEDS: NOREPINEPHRINE 8 MG/250ML KIT 250 ML IV SCH (01:46)
--- NOTE | 2020-02-04 03:00 | NUR ---
Bed bath: Patient awake and alert. With assistance from a female nurse who was present, Primary RN and female RN provided manuel care d/t patient on her menstrual cycle, linen change was also provided. Patient tolerated interventions well with no s/s of discomfort or distress.
--- NOTE | 2020-02-04 03:14 | NUR ---
Patient is becoming more alert and able to speak more. Patient asked RN where her purse was and that she had money in her purse. RN informed patient that during her admission into ICU, her ID's and money was placed into the hospital safe to prevent loss and that her cloth she came in with is at bedside in the hospital dresser. Patient verbalized understanding.
[2020-02-04 04:07] LABS: Basophils # (auto) 0.1 10 ^3/uL (0-0.2); Basophils % (auto) 1.1 % (0.0-2.0); Eosinophils # (auto) 0.1 10 ^3/uL (0-0.8); Eosinophils % (auto) 1.5 % (0.0-7.0); Hematocrit 36.3 % (36.0-46.0); Hemoglobin 12.2 g/dL (12.2-16.2); Lymphocytes # (auto) 1.3 10 ^3/uL (0.4-5.4); Lymphocytes % (auto) 19.6 % (10.0-50.0); Mean Corpuscular Hemoglobin 30.9 pg (28.0-32.0); Mean Corpuscular Hgb Conc. 33.5 g/dL (32.0-36.0); Monocytes # (auto) 0.4 10 ^3/uL (0-1.3); Monocytes % (auto) 5.7 % (0.0-12.0); Neutrophils # (auto) 4.9 10 ^3/uL (1.6-8.6); Neutrophils % (auto) 72.1 % (37.0-80.0); Nucleated Red Blood Cells % 0.1 %; Platelet Count (auto) 247 10^3/uL (140-450); Red Blood Cells 3.94 10^6/uL (4.0-5.20); Red Cell Distribution Width 14.2 % (11.8-14.3); White Blood Cell 6.7 10^3/uL (4.4-10.8)
[2020-02-04 04:30] LABS: Albumin 2.1 g/dL (3.4-5.0); BUN/Creatinine Ratio 10.1; Calcium 8.3 mg/dL (8.5-10.1); Potassium 3.1 mmol/L (3.5-5.1)
[2020-02-04 04:33] LABS: Bilirubin, Total 1.5 mg/dL (0.2-1.0); Total Protein 6.5 g/dL (6.4-8.2)
--- NOTE | 2020-02-04 05:15 | NUR ---
Hospitalist paged: Hospitalist paged regarding patient having a low potassium. RN awaiting call back.
[2020-02-04] MEDS: PIPERACILLIN-TAZOB 3.375GM 100 ML IV SCH (05:33)
[2020-02-04] MEDS: ACCU-CHEK COMFORT CURVE STRIP VI SCH ×5 (05:52→23:51)
[2020-02-04] MEDS: InsuLIN REG 1unit/0.01ml Soln (100units/ml) SC SCH ×5 (05:53→23:53)
--- NOTE | 2020-02-04 05:57 | NUR ---
Hospitalist returned page: Hospitalist returned call and was updated on patient condition and situation. New orders obtained and verified.
[2020-02-04] MEDS: POTASSIUM CHL 20MEQ/100ML 100 ML IV SCH ×2 (06:00→08:00)
[2020-02-04] MEDS ORDERED: POTASSIUM CHL 20MEQ/100ML 200 ML IV ONE (06:06)
--- NOTE | 2020-02-04 08:30 | NUR ---
NUTRITION Breakfast tray given to patient and patient was able to eat independently about 25%.
[2020-02-04] MEDS: ENOXAPARIN SOD 40 MG/0.4 ML SYRINGE SC SCH (10:00)
[2020-02-04] MEDS: FLUCONAZOLE 200MG/100ML 100 ML IV SCH ×2 (10:00→11:00)
[2020-02-04] MEDS: FAMOTIDINE (10MG/ML) 2ML VL IV SCH (10:00)
[2020-02-04] MEDS: TACROLIMUS 1 MG CAP PO SCH (10:00)
--- NOTE | 2020-02-04 10:30 | NUR ---
OUTPUT Emptied Mccallum catheter drained 800ml of clear yellow urine.
--- NOTE | 2020-02-04 11:00 | NUR ---
MD Dr. Corley paged for downgrade per [place] ICU director.
--- NOTE | 2020-02-04 11:07 | NUR ---
MD Dr. Corley called back and states " Okay to downgrade patient to Telemetry."
--- NOTE | 2020-02-04 11:45 | NUR ---
GANG TAILER any [employer] housekeeper assigned bed 292B with Sowmya HONG.
--- NOTE | 2020-02-04 12:20 | NUR ---
REPORT Report given to Sowmya HONG, who will continue plan of care once patient arrives to room 292B.
--- NOTE | 2020-02-04 12:25 | NUR ---
FAMILY Received phone call from patients mother, correct password provided and updated on patient condition. Mother is aware of transfer to room 292B.
--- NOTE | 2020-02-04 12:45 | NUR ---
Received patient from ICU Patient resting in bed no signs or symptoms of distress noted at this time. Patient is on room air, respirations even and unlabored. Bed in low and locked position, call light within reach. Will continue to monitor Q1 hour and PRN.
--- NOTE | 2020-02-04 14:30 | NUR ---
Clemons catheter dc'd Order to discontinue clemons catheter. Clemons dc'd with clean technique following deflation of balloon. Patient tolerated well with no complaints of pain. Continue care.
--- NOTE | 2020-02-04 16:00 | NUR ---
Pharmacy requesting clarification Pharmacy requesting dosage clarification for Tacrolimus. Per patient she takes Prograf 2mg PO BID. Pharmacy has been notified.
[2020-02-04] MEDS ORDERED: TACR1CAP4 PO ×2 (17:28)
[2020-02-04] MEDS ORDERED: INSU100I26 (17:28)
[2020-02-04] MEDS ORDERED: INSLANTI SC (17:28)
[2020-02-04] MEDS ORDERED: METF-372 (17:28)
[2020-02-04] MEDS ORDERED: BENA40TA7 (17:28)
[2020-02-04] MEDS ORDERED: TACROLIMUS 1 MG CAP PO SCH (18:00)
[2020-02-04] MEDS ORDERED: INSULIN LANTUS (GLARGINE) 1 /0.01ml (100units/ml) SC SCH (22:00)
[2020-02-05 05:00] VITALS: BP 135/97
--- NOTE | 2020-02-05 06:00 | NUR ---
Patient voided after Cmcallum removal Voided 250 ml of tea colored urine into bedpan. Patient unable to ambulate at this time. Patient tolerated well with no c/o burning or difficulty with urination. Changed bedding and sanitary napkin.
[2020-02-05] MEDS: ACCU-CHEK COMFORT CURVE STRIP VI SCH ×2 (06:57→12:23)
[2020-02-05] MEDS: InsuLIN REG 1unit/0.01ml Soln (100units/ml) SC SCH ×2 (06:58→12:23)
[2020-02-05] MEDS ORDERED: LEVOTHYROXINE SODIUM 25 MCG TAB PO SCH (07:00)
[2020-02-05] MEDS ORDERED: TACROLIMUS 1 MG CAP PO SCH (07:00)
--- NOTE | 2020-02-05 07:35 | NUR ---
Opening Shift Note: Assumed care of patient, awake and alert. No S/S of distress/SOB or pain. Bed in lowest locked position, side rails up x 2, call light within reach. Patient instructed on POC and to call for assist PRN, will continue to monitor for changes Q1hr and PRN.
[2020-02-05 09:00] VITALS: BP 149/102
[2020-02-05] MEDS: FLUCONAZOLE 200MG/100ML 100 ML IV SCH ×2 (09:26→11:35)
[2020-02-05] MEDS: ENOXAPARIN SOD 40 MG/0.4 ML SYRINGE SC SCH (09:26)
[2020-02-05] MEDS ORDERED: FAMOTIDINE 20 MG TAB PO SCH (10:00)
[2020-02-05 10:06] LABS: BUN/Creatinine Ratio 16.5; Calcium 8.8 mg/dL (8.5-10.1); Potassium 3.4 mmol/L (3.5-5.1)
[2020-02-05] MEDS ORDERED: POTASSIUM CHL 20 Meq TABLET PO ONE (11:30)
[2020-02-05] MEDS ORDERED: BENAZEPRIL HCL 10 MG TAB PO ONE (12:15)
[2020-02-05 12:41] VITALS: BP 152/103
[2020-02-05 13:00] VITALS: BP 152/103
--- NOTE | 2020-02-05 13:45 | NUR ---
PER REQUEST, RIGHT IJ REMOVED. PRESSURE DRESSING APPLIED, VITAL SIGNS STABLE, PATIENT TOLERATED WELL. WILL CONTINUE TO MONITOR.
--- NOTE | 2020-02-05 15:14 | NUR ---
Discharge instructions given as ordered. Encourage to follow up with PMD as instructed. All questions and concerns addressed. Patient verbalized understanding. Medication reconciliation form completed and copy given to patient.IV removed with catheter intact, pressure dressing applied. Telemetry unit returned to ICU. Patient taken to vehicle via wheelchair with all personal belongings, accompanied by staff and family member. No distress noted at time of departure.
== END 2020-02-05 15:14 | disposition home or self-care (01) | DRG 720 ==
LOC: ER 16:26 → TELE 16:27 → ICU WEST 23:22 → TELE-WESTW 02-04 12:55
PROVIDERS: ADMIT Hospitalist; ATTEND Internal Medicine
PROC: 5A09357 Assistance with Respiratory Ventilation, Less than 24 Consecutive Hours, Continuous Positive Airway Pressure (ICD-10-PCS; 2020-01-31)
PROC: 5A1945Z Respiratory Ventilation, 24-96 Consecutive Hours (ICD-10-PCS; principal; 2020-02-01)
PROC: 0BH17EZ Insertion of Endotracheal Airway into Trachea, Via Natural or Artificial Opening (ICD-10-PCS; 2020-02-01)
PROC: 05HM33Z Insertion of Infusion Device into Right Internal Jugular Vein, Percutaneous Approach (ICD-10-PCS; 2020-02-01)
DX: A41.9 Sepsis, unspecified organism (principal); J96.00 Acute respiratory failure, unspecified whether with hypoxia or hypercapnia; N17.0 Acute kidney failure with tubular necrosis; R65.21 Severe sepsis with septic shock; G93.41 Metabolic encephalopathy; E11.10 Type 2 diabetes mellitus with ketoacidosis without coma; J18.9 Pneumonia, unspecified organism; N30.00 Acute cystitis without hematuria; E87.5 Hyperkalemia; E87.1 Hypo-osmolality and hyponatremia; I10 Essential (primary) hypertension; E66.01 Morbid (severe) obesity due to excess calories; E03.9 Hypothyroidism, unspecified; Z91.14 Patient's other noncompliance with medication regimen; Z68.41 Body mass index [BMI] 40.0-44.9, adult; Z94.4 Liver transplant status; Z91.19 Patient's noncompliance with other medical treatment and regimen; Z79.4 Long term (current) use of insulin; Z79.899 Other long term (current) drug therapy; Z82.49 Family history of ischemic heart disease and other diseases of the circulatory system; Z83.3 Family history of diabetes mellitus
CPT/HCPCS: 36415; 36600; 51702; 71045; 80048; 80053; 80061; 81001; 81025; 82010; 82728; 82805; 82962; 83036; 83690; 83735; 83930; 84100; 84443; 84702; 85007; 85025; 85027; 85610; 85730; 86225; 86235; 87070; 87081; 87086; 87088; 87186; 87205; 93005; 94002; 94003; 94640; 94660; 96361; 96365; 96375; 99291; G0378; J0330; J0696; J1450; J1815; J2250; J2405; J2543; J2704; J3480; J3490; J7507

== ENCOUNTER 2020-07-31 13:38 | Inpatient (IN) | payer OTHER ==
[~2020-07-31] VITALS: Ht 175.3 cm; Wt 105.8 kg
[~2020-07-31 13:38] MED LIST changes: +BENA40TA7; +INSU100I26; -INSUINJ18 SC; +METF-372; -TACR5CAP3 PO
[2020-07-31 15:38] LABS: Basophils # (auto) 0 10 ^3/uL (0-0.2); Basophils % (auto) 0.2 % (0.0-2.0); Eosinophils # (auto) 0 10 ^3/uL (0-0.8); Hematocrit 41.4 % (36.0-46.0); Hemoglobin 13.8 g/dL (12.2-16.2); Lymphocytes # (auto) 0.5 10 ^3/uL (0.4-5.4); Lymphocytes % (auto) 2.4 % (10.0-50.0); Mean Corpuscular Hemoglobin 30.1 pg (28.0-32.0); Mean Corpuscular Hgb Conc. 33.3 g/dL (32.0-36.0); Mean Corpuscular Volume 90.3 fL (80.0-100.0); Monocytes # (auto) 0.8 10 ^3/uL (0-1.3); Monocytes % (auto) 4.4 % (0.0-12.0); Neutrophils # (auto) 17.3 10 ^3/uL (1.6-8.6); Nucleated Red Blood Cells % 0.2 %; Platelet Count (auto) 364 10^3/uL (140-450); Red Blood Cells 4.58 10^6/uL (4.0-5.20); Red Cell Distribution Width 15.2 % (11.8-14.3); White Blood Cell 18.7 10^3/uL (4.4-10.8)
[2020-07-31 15:53] LABS: Alanine Aminotransferase 51 U/L (13-56); Albumin 3.1 g/dL (3.4-5.0); Anion Gap 20 (5-15); Aspartate Aminotransferase 33 U/L (15-37); BUN/Creatinine Ratio 12.9; Blood Urea Nitrogen 21 mg/dL (7-18); Carbon Dioxide 11 mmol/L (21-32); Chloride 101 mmol/L (98-107); GFR African American 46 mL/min; GFR Non-African American 38 mL/min; Glucose 68 mg/dL (74-106); Sodium 132 mmol/L (136-145)
[2020-07-31 15:57] LABS: Alkaline Phosphatase 508 U/L (45-117); Bilirubin, Total 1.4 mg/dL (0.2-1.0); Lactic Acid w/Reflex 3.9 mmol/L (0.4-2.0); Total Protein 7.5 g/dL (6.4-8.2)
[2020-07-31 16:14] LABS: Potassium 2.8 mmol/L (3.5-5.1)
[2020-07-31] MEDS ORDERED: AZITHROMYCIN 500MG/ 250ML 250 ML IV ONE (16:15)
[2020-07-31] MEDS ORDERED: POTASSIUM CHL 20 Meq TABLET PO ONE (17:15)
[2020-07-31] MEDS ORDERED: DEXTROSE (50%) 50ML SYRG IV ONE (17:15)
[2020-08-01] MEDS ORDERED: DEXTROSE (50%) 50ML SYRG IV PRN (06:45)
[2020-08-01] MEDS ORDERED: INSULIN LANTUS (GLARGINE) 1 /0.01ml (100units/ml) SC ONE (06:45)
[2020-08-01] MEDS: SODIUM CHLORIDE 0.9% 1,000 ML IV SCH ×4 (06:45→17:04)
[2020-08-01] MEDS ORDERED: InsuLIN REG 1unit/0.01ml Soln (100units/ml) ONE (06:53)
[2020-08-01] MEDS: InsuLIN R (HUMAN) 100 UNITS in SODIUM CHL 0.9% 99 ML IV SCH ×2 (06:55→10:40)
[2020-08-01 07:11] LABS: Hemoglobin 14.8 g/dL (12.2-16.2); Mean Corpuscular Hemoglobin 29.8 pg (28.0-32.0); Platelet Count (auto) 472 10^3/uL (140-450); White Blood Cell 25.2 10^3/uL (4.4-10.8)
[2020-08-01 07:14] LABS: Basophils # (auto) 0.3 10 ^3/uL (0-0.2); Basophils % (auto) 1.3 % (0.0-2.0); Eosinophils # (auto) 0 10 ^3/uL (0-0.8); Eosinophils % (auto) 0.2 % (0.0-7.0); Hematocrit 48.8 % (36.0-46.0); Lymphocytes # (auto) 1.9 10 ^3/uL (0.4-5.4); Lymphocytes % (auto) 7.5 % (10.0-50.0); Mean Corpuscular Hgb Conc. 30.3 g/dL (32.0-36.0); Mean Corpuscular Volume 98.5 fL (80.0-100.0); Monocytes # (auto) 1.5 10 ^3/uL (0-1.3); Monocytes % (auto) 5.9 % (0.0-12.0); Neutrophils # (auto) 21.5 10 ^3/uL (1.6-8.6); Neutrophils % (auto) 85.1 % (37.0-80.0); Nucleated Red Blood Cells % 0.3 %; Red Blood Cells 4.96 10^6/uL (4.0-5.20)
[2020-08-01 07:39] LABS: Calcium 8.5 mg/dL (8.5-10.1); Magnesium 2.5 mg/dL (1.6-2.6)
[2020-08-01 07:46] LABS: BUN/Creatinine Ratio 16.5; Phosphorus 4.9 mg/dL (2.5-4.90)
[2020-08-01 07:54] LABS: Potassium 5.6 mmol/L (3.5-5.1)
[2020-08-01] MEDS: ACCU-CHEK COMFORT CURVE STRIP VI SCH ×11 (08:37→22:30)
[2020-08-01] MEDS ORDERED: ETOMIDATE (2MG/ML) 20ML VIAL IV ONE ×3 (09:01→09:45)
[2020-08-01] MEDS ORDERED: SUCCINYLCHOLINE CHLORIDE 20 MG/ML 10ML VIAL IV ONE ×3 (09:02→09:45)
[2020-08-01] MEDS ORDERED: MIDAZOLAM DRIP 50 mg/50mL 50 ML IV ONE (09:13)
[2020-08-01] MEDS ORDERED: PROPOFOL 100 ML IV ONE (09:14)
[2020-08-01] MEDS: PROPOFOL 100 ML IV SCH ×2 (09:20→14:50)
[2020-08-01] MEDS: MIDAZOLAM DRIP 50 mg/50mL 50 ML IV SCH ×2 (09:36→14:49)
[2020-08-01] MEDS ORDERED: PROPOFOL 100 ML IV SCH ×2 (09:45→10:45)
[2020-08-01] MEDS ORDERED: MIDAZOLAM DRIP 50 mg/50mL 50 ML IV SCH ×2 (09:45→10:45)
[2020-08-01] MEDS ORDERED: SODIUM BICARBONATE 8.4 % INJ 50ML VIAL IV ONE (10:30)
[2020-08-01] MEDS ORDERED: SODIUM BICARBONATE 8.4% INJ 50ML SYRINGE ONE (10:38)
[2020-08-01] MEDS ORDERED: NOREPINEPHRINE 8 MG/250ML KIT 250 ML IV ONE (10:38)
[2020-08-01] MEDS: NOREPINEPHRINE 8 MG/250ML KIT 250 ML IV SCH (10:43)
[2020-08-01] MEDS ORDERED: SODIUM CHLORIDE 0.9% 1,000 ML IV SCH (10:45)
[2020-08-01] MEDS ORDERED: NITROGLYCERIN 0.4 MG SL TAB SL PRN (10:45)
[2020-08-01] MEDS ORDERED: NOREPINEPHRINE 8 MG/250ML KIT 250 ML IV SCH (10:45)
[2020-08-01] MEDS ORDERED: MORPHINE SULF INJ 2 MG/ML SYRINGE 1ML IV PRN (10:45)
[2020-08-01] MEDS: SODIUM BICARB 50ML SYR 150 ML in SOD CHL 0.45% 1,000 ML IV SCH ×2 (11:10→18:12)
[2020-08-01] MEDS: DOXYCYCLINE 100MG/250ML 250 ML IV SCH ×2 (12:00→22:45)
[2020-08-01 19:06] VITALS: BP 116/55
[2020-08-01 19:14] LABS: BUN/Creatinine Ratio 21.3; Calcium 6.4 mg/dL (8.5-10.1); Potassium 4.1 mmol/L (3.5-5.1)
[2020-08-01 22:26] VITALS: BP 120/58
[2020-08-02] MEDS: ACCU-CHEK COMFORT CURVE STRIP VI SCH ×11 (00:27→23:55)
[2020-08-02 01:39] VITALS: BP 110/58
[2020-08-02] MEDS: SODIUM CHLORIDE 0.9% 1,000 ML IV SCH ×2 (02:05→08:14)
[2020-08-02] MEDS: SODIUM BICARB 50ML SYR 150 ML in SOD CHL 0.45% 1,000 ML IV SCH ×3 (03:24→21:20)
[2020-08-02] MEDS: fentaNYL Drip 2500mCg/250mlNS 250 ML IV SCH (03:28)
[2020-08-02] MEDS: MIDAZOLAM DRIP 50 mg/50mL 50 ML IV SCH ×2 (05:34→10:00)
[2020-08-02 06:37] VITALS: BP 108/59
[2020-08-02] MEDS ORDERED: LEVOTHYROXINE SODIUM 25 MCG TAB PO ONE (08:00)
[2020-08-02] MEDS: cefTRIAXone 1GM/50ML D5W 50 ML IV SCH (08:14)
[2020-08-02] MEDS: ENOXAPARIN SOD 40 MG/0.4 ML SYRINGE SC SCH (08:14)
[2020-08-02] MEDS: PROPOFOL 100 ML IV SCH (08:15)
[2020-08-02 08:16] LABS: Calcium 6.9 mg/dL (8.5-10.1); Magnesium 1.8 mg/dL (1.6-2.6); Potassium 3.4 mmol/L (3.5-5.1)
[2020-08-02 08:20] LABS: BUN/Creatinine Ratio 16.3; Phosphorus 1.7 mg/dL (2.5-4.90)
[2020-08-02] MEDS: TACROLIMUS 1 MG CAP PO SCH ×2 (09:23→22:01)
[2020-08-02] MEDS ORDERED: INSULIN LANTUS (GLARGINE) 1 /0.01ml (100units/ml) SC SCH (10:00)
[2020-08-02] MEDS ORDERED: DEXTROSE (50%) 50ML SYRG IV PRN (10:15)
[2020-08-02 10:30] VITALS: BP 109/51
[2020-08-02] MEDS: DOXYCYCLINE 100MG/250ML 250 ML IV SCH ×2 (10:45→22:45)
[2020-08-02] MEDS: InsuLIN REG 1unit/0.01ml Soln (100units/ml) SC SCH ×4 (12:11→23:58)
[2020-08-02 14:03] VITALS: BP 110/49
--- NOTE | 2020-08-02 17:00 | NUR ---
WOUND CARE NOTE: IN TO SEE PATIENT AT THIS TIME PER WOUND CARE CONSULT REQUEST. PATIENT ADMITTED TO [facility] WITH DIAGNOSIS OF DKA. SHE IS INTUBATED, SEDATED, CURRENT ELIZA SCORE ASSESSED AT 10. PATIENT RESTING ON HOSPITAL BED. PATIENT HAS MULTIPLE CO-MORBIDITIES, INCLUDIN. Acute respiratory failure secondary to severe metabolic acidosis 2. Metabolic encephalopathy 3. Acute kidney injury/vasomotor nephropathy 4. History of liver transplantation 5. Leukocytosis, probable sepsis 6. Shock, probably septic, hypovolemic etiology 7. Obesity 8. Hyperkalemia. PATIENT NOTED TO HAVE STAGE 1 PRESSURE INJURY TO THE RIGHT LATERAL HEEL. WOUND IS DARK RED, NON BLANCHABLE. NO OPEN OR DRAINING AREAS NOTED. WOUND PHOTO TAKEN FOR REFERENCE. RECOMMEND: FREQUENT TURN SCHEDULE Q 2 HOURS, PRN CONDITION PERMITS, WITH PRESSURE REDISTRIBUTION USING PILLOWS/WEDGES, ANAMIKA FOAM BOOTS, BID/PRN APPLICATION WITH MOISTURE BARRIER CREAM, OPTIFOAM GENTLE SACRAL DRESSING PREVENTATIVE, SKIN/WOUND CARE PLAN, DIETARY CONSULT, CONTINUED MONITORING BY WOUND CARE TEAM. Addendum: 08/02/20 at 1752 by Teagan Almonte RN Amended: Links added.
[2020-08-02 18:05] VITALS: BP 128/66
[2020-08-02] MEDS: NOREPINEPHRINE 8 MG/250ML KIT 250 ML IV SCH (19:35)
[2020-08-02 20:36] LABS: BUN/Creatinine Ratio 15.1; Calcium 6.8 mg/dL (8.5-10.1)
[2020-08-02 20:39] LABS: Potassium 2.9 mmol/L (3.5-5.1)
[2020-08-02] MEDS: POTASSIUM CHL 20MEQ/100ML 100 ML IV SCH ×2 (20:56→22:56)
[2020-08-02 21:50] VITALS: BP 121/59
[2020-08-03] MEDS: MIDAZOLAM DRIP 50 mg/50mL 50 ML IV SCH ×4 (01:15→21:32)
[2020-08-03 01:50] VITALS: BP 122/68
[2020-08-03] MEDS: fentaNYL Drip 2500mCg/250mlNS 250 ML IV SCH ×2 (01:56→16:25)
[2020-08-03] MEDS: ACCU-CHEK COMFORT CURVE STRIP VI SCH ×5 (04:16→20:05)
[2020-08-03] MEDS: InsuLIN REG 1unit/0.01ml Soln (100units/ml) SC SCH ×5 (04:18→20:00)
[2020-08-03 06:05] VITALS: BP 131/73
[2020-08-03 06:40] LABS: Basophils # (auto) 0 10 ^3/uL (0-0.2); Basophils % (auto) 0.4 % (0.0-2.0); Eosinophils # (auto) 0 10 ^3/uL (0-0.8); Eosinophils % (auto) 0.5 % (0.0-7.0); Hemoglobin 10.6 g/dL (12.2-16.2); Lymphocytes # (auto) 1.5 10 ^3/uL (0.4-5.4); Lymphocytes % (auto) 18.1 % (10.0-50.0); Mean Corpuscular Hemoglobin 30.7 pg (28.0-32.0); Mean Corpuscular Hgb Conc. 34.2 g/dL (32.0-36.0); Mean Corpuscular Volume 89.7 fL (80.0-100.0); Monocytes # (auto) 0.6 10 ^3/uL (0-1.3); Monocytes % (auto) 7.1 % (0.0-12.0); Neutrophils # (auto) 6.1 10 ^3/uL (1.6-8.6); Neutrophils % (auto) 73.9 % (37.0-80.0); Nucleated Red Blood Cells % 0.1 %; Platelet Count (auto) 167 10^3/uL (140-450); Red Blood Cells 3.45 10^6/uL (4.0-5.20); Red Cell Distribution Width 16.2 % (11.8-14.3); White Blood Cell 8.2 10^3/uL (4.4-10.8)
[2020-08-03 06:42] LABS: Albumin 1.8 g/dL (3.4-5.0); Calcium 6.8 mg/dL (8.5-10.1); Magnesium 1.5 mg/dL (1.6-2.6)
[2020-08-03 06:46] LABS: BUN/Creatinine Ratio 14.7; Bilirubin, Total 0.6 mg/dL (0.2-1.0); Phosphorus 2.4 mg/dL (2.5-4.90)
[2020-08-03 07:42] LABS: Potassium 2.8 mmol/L (3.5-5.1)
[2020-08-03] MEDS ORDERED: POTASSIUM CHLORIDE 60 MEQ, LIDOCAINE 1% (LOCAL ANESTH.) 6 ML in SODIUM CHL 0.9% 500 ML IV ONE (08:00)
[2020-08-03] MEDS: SODIUM BICARB 50ML SYR 150 ML in SOD CHL 0.45% 1,000 ML IV SCH (08:10)
[2020-08-03] MEDS: LEVOTHYROXINE SODIUM 25 MCG TAB PO SCH (08:11)
[2020-08-03] MEDS: ENOXAPARIN SOD 40 MG/0.4 ML SYRINGE SC SCH (08:11)
[2020-08-03] MEDS: cefTRIAXone 1GM/50ML D5W 50 ML IV SCH (08:11)
[2020-08-03] MEDS: TACROLIMUS 1 MG CAP PO SCH ×2 (08:35→21:32)
[2020-08-03] MEDS: INSULIN LANTUS (GLARGINE) 1 /0.01ml (100units/ml) SC SCH (08:35)
[2020-08-03 09:50] VITALS: BP 123/66
[2020-08-03] MEDS ORDERED: FUROSEMIDE 40 MG/4 ML VIAL IV ONE (10:30)
[2020-08-03] MEDS: MAGNESIUM SULFATE 1GM/100ML 100 ML IV SCH ×2 (10:48→12:09)
[2020-08-03] MEDS: LACTATED RINGER'S 1,000 ML IV SCH ×2 (10:48→21:32)
[2020-08-03] MEDS: DOXYCYCLINE 100MG/250ML 250 ML IV SCH ×2 (10:48→21:32)
--- NOTE | 2020-08-03 12:39 | NUR ---
Nutrition Assessment/Consult Notes Please refer to link for full assessment notes. Est Energy needs: 7800-6330 kcals (20-23 kcal/kgBW) d/t pt is with BERNARDINO, adiposity Est Protein needs: 57-91 gms/day (0.5-0.8 gm/kgBW) d/t pt is with BERNARDINO Will continue to monitor and reassess prn. Addendum: 08/03/20 at [address] Amended: Links added.
[2020-08-03 15:00] VITALS: BP 111/61
[2020-08-03 19:03] VITALS: BP 106/60
[2020-08-03] MEDS ORDERED: DEXTROSE (50%) 50ML SYRG IV PRN (19:15)
[2020-08-03] MEDS ORDERED: DexAMETHasone SOD PHOS 10MG/1ML VIAL INJ IV ONE (19:15)
[2020-08-03 20:16] LABS: Urine Bacteria FEW /hpf (None Seen); Urine Blood Negative /uL (Negative); Urine Mucus FEW (None Seen); Urine Specific Gravity 1.008 (1.001-1.035); Urine WBC <1 /hpf (0 - 5)
[2020-08-03 20:43] LABS: Protein, Urine 20.3 mg/dL (0.0-11.9)
[2020-08-03 22:25] VITALS: BP 124/71
[2020-08-03 23:32] LABS: Calcium 7.1 mg/dL (8.5-10.1); Potassium 3.1 mmol/L (3.5-5.1)
[2020-08-03 23:33] LABS: BUN/Creatinine Ratio 16.8
[2020-08-04] MEDS: ACCU-CHEK COMFORT CURVE STRIP VI SCH ×6 (00:03→20:00)
[2020-08-04] MEDS: InsuLIN REG 1unit/0.01ml Soln (100units/ml) SC SCH ×6 (00:09→20:00)
[2020-08-04] MEDS ORDERED: POTASSIUM EFFERVESENT TAB 25 MEQ PO ONE (01:45)
[2020-08-04] MEDS: POTASSIUM CHL 20MEQ/100ML 100 ML IV SCH ×2 (01:57→03:17)
[2020-08-04] MEDS: MIDAZOLAM DRIP 50 mg/50mL 50 ML IV SCH (02:23)
[2020-08-04 02:25] VITALS: BP 142/84
[2020-08-04 06:15] VITALS: BP 121/75
[2020-08-04 06:52] LABS: Basophils # (auto) 0 10 ^3/uL (0-0.2); Basophils % (auto) 0.2 % (0.0-2.0); Eosinophils # (auto) 0 10 ^3/uL (0-0.8); Hematocrit 33.3 % (36.0-46.0); Lymphocytes # (auto) 0.2 10 ^3/uL (0.4-5.4); Lymphocytes % (auto) 2.5 % (10.0-50.0); Mean Corpuscular Hemoglobin 30.2 pg (28.0-32.0); Mean Corpuscular Hgb Conc. 33.1 g/dL (32.0-36.0); Mean Corpuscular Volume 91.3 fL (80.0-100.0); Monocytes # (auto) 0.1 10 ^3/uL (0-1.3); Monocytes % (auto) 0.9 % (0.0-12.0); Neutrophils # (auto) 6.6 10 ^3/uL (1.6-8.6); Neutrophils % (auto) 96.4 % (37.0-80.0); Nucleated Red Blood Cells % 0.1 %; Platelet Count (auto) 198 10^3/uL (140-450); Red Blood Cells 3.65 10^6/uL (4.0-5.20); Red Cell Distribution Width 16.3 % (11.8-14.3); White Blood Cell 6.8 10^3/uL (4.4-10.8)
[2020-08-04 07:03] LABS: Potassium 5.4 mmol/L (3.5-5.1)
[2020-08-04 07:15] LABS: BUN/Creatinine Ratio 16.4; Calcium 7.5 mg/dL (8.5-10.1); Phosphorus 2.7 mg/dL (2.5-4.90)
[2020-08-04] MEDS: LEVOTHYROXINE SODIUM 25 MCG TAB PO SCH (07:17)
[2020-08-04] MEDS: cefTRIAXone 1GM/50ML D5W 50 ML IV SCH (09:03)
[2020-08-04 10:13] VITALS: BP 110/66
[2020-08-04] MEDS: DexAMETHasone SOD PHOS 10MG/1ML VIAL INJ IV SCH (10:33)
[2020-08-04] MEDS: TACROLIMUS 1 MG CAP PO SCH ×2 (10:33→21:39)
[2020-08-04] MEDS: INSULIN LANTUS (GLARGINE) 1 /0.01ml (100units/ml) SC SCH (10:33)
[2020-08-04] MEDS: ENOXAPARIN SOD 40 MG/0.4 ML SYRINGE SC SCH (10:37)
[2020-08-04] MEDS: fentaNYL Drip 2500mCg/250mlNS 250 ML IV SCH (11:06)
[2020-08-04] MEDS: DOXYCYCLINE 100MG/250ML 250 ML IV SCH ×2 (11:08→22:45)
--- NOTE | 2020-08-04 13:25 | NUR ---
Respiratory note: CPAP TRIAL INITIATED. PATIENT IS NOT FULLY AWAKE OR FOLLOWING COMMANDS YET. RN AND DR. RAE AWARE. HR 109, RR 28, SPO2 94% BP 136/84. ABG TO FOLLOW
[2020-08-04 14:09] VITALS: BP 147/85
--- NOTE | 2020-08-04 15:15 | NUR ---
Respiratory note: TERMINATED CPAP TRIAL AND PLACED PATIENT BACK ON PREVIOUS SETTINGS.
[2020-08-04 18:30] VITALS: BP 158/89
[2020-08-04 22:42] VITALS: BP 151/83
[2020-08-05] MEDS: InsuLIN REG 1unit/0.01ml Soln (100units/ml) SC SCH ×7 (00:10→23:50)
[2020-08-05] MEDS: ACCU-CHEK COMFORT CURVE STRIP VI SCH ×6 (00:10→21:34)
[2020-08-05] MEDS: MIDAZOLAM DRIP 50 mg/50mL 50 ML IV SCH ×2 (00:15→00:40)
[2020-08-05 02:45] VITALS: BP 155/92
[2020-08-05 06:00] VITALS: BP 138/93
[2020-08-05 06:34] LABS: Basophils # (auto) 0 10 ^3/uL (0-0.2); Basophils % (auto) 0.1 % (0.0-2.0); Eosinophils # (auto) 0 10 ^3/uL (0-0.8); Hematocrit 34.1 % (36.0-46.0); Hemoglobin 11.4 g/dL (12.2-16.2); Lymphocytes # (auto) 0.8 10 ^3/uL (0.4-5.4); Lymphocytes % (auto) 9.3 % (10.0-50.0); Mean Corpuscular Hemoglobin 30.3 pg (28.0-32.0); Mean Corpuscular Hgb Conc. 33.5 g/dL (32.0-36.0); Mean Corpuscular Volume 90.5 fL (80.0-100.0); Monocytes # (auto) 0.7 10 ^3/uL (0-1.3); Monocytes % (auto) 8.3 % (0.0-12.0); Neutrophils # (auto) 7.1 10 ^3/uL (1.6-8.6); Neutrophils % (auto) 82.3 % (37.0-80.0); Platelet Count (auto) 290 10^3/uL (140-450); Red Blood Cells 3.77 10^6/uL (4.0-5.20); Red Cell Distribution Width 15.8 % (11.8-14.3); White Blood Cell 8.6 10^3/uL (4.4-10.8)
[2020-08-05 06:50] LABS: Potassium 3.7 mmol/L (3.5-5.1)
[2020-08-05 07:16] LABS: BUN/Creatinine Ratio 22.1; Bilirubin, Total 0.6 mg/dL (0.2-1.0); Calcium 8.1 mg/dL (8.5-10.1); Total Protein 5.8 g/dL (6.4-8.2)
[2020-08-05] MEDS: INSULIN LANTUS (GLARGINE) 1 /0.01ml (100units/ml) SC SCH (08:51)
--- NOTE | 2020-08-05 09:00 | NUR ---
PLACED PT ON CPAP WEANING TRIAL. PT TOLERATING WELL, WILL CONTINUE TO MONITOR PT. BP 139/93, HR 99 BPM, RR20 BPM.
[2020-08-05] MEDS: DexAMETHasone SOD PHOS 10MG/1ML VIAL INJ IV SCH (09:02)
[2020-08-05] MEDS: TACROLIMUS 1 MG CAP PO SCH ×2 (09:02→21:34)
[2020-08-05] MEDS: ENOXAPARIN SOD 40 MG/0.4 ML SYRINGE SC SCH (09:02)
[2020-08-05] MEDS: cefTRIAXone 1GM/50ML D5W 50 ML IV SCH (09:02)
[2020-08-05] MEDS: LEVOTHYROXINE SODIUM 25 MCG TAB PO SCH (09:26)
--- NOTE | 2020-08-05 09:50 | NUR ---
PT PLACED BACK ON AC SAME SETTINGS PT DID NOT TOLERATE CPAP WEANING TRIAL. PT BECAME TACHYPNEIC(RR45 BPM) WITH INCREASING WOB. GELY WOLFF WAS NOTIFIED. WILL CONTINUE TO MONITOR PT.
[2020-08-05] MEDS ORDERED: TPN PER PHARMACY 0 ML IV SCH (11:30)
[2020-08-05] MEDS ORDERED: diphenhdrAMINE HCL 50 MG/1 ML VL IV PRN (11:30)
[2020-08-05] MEDS: DOXYCYCLINE 100MG/250ML 250 ML IV SCH ×2 (11:39→21:34)
[2020-08-05 13:10] LABS: Magnesium 1.6 mg/dL (1.6-2.6)
[2020-08-05 13:15] LABS: Phosphorus 3.2 mg/dL (2.5-4.90); Pre Albumin 9.9 mg/dL (20.0-40.0)
--- NOTE | 2020-08-05 13:50 | NUR ---
PT PLACED ON CPAP WEANING TRIAL PER DR RAE. PT TOLERATING WELL.
--- NOTE | 2020-08-05 14:50 | NUR ---
CPAP WEANING TRIAL PARAMETERS: NIF -80, VC 2000, LEAK TEST 205, RSBI 45. PT EXTUBATED AND PLACED ON 80% COOL MYST AEROSOL MASK. PT TOLERATING WELL. NO STRIDOR , NO SOB. RR20 BPM, BP 148/62. HR 114 BPM.
--- NOTE | 2020-08-05 16:02 | NUR ---
Nutrition Followup Notes Pt wt is 51.4 kg/m2 Pt was extubated today, placed on a CCHO 60g diet with no record of %PO intake yet. Est Energy needs: 5563-6361 kcals (20-23 kcal/kgBW) d/t pt is with BERNARDINO, adiposity Est Protein needs: 57-91 gms/day (0.5-0.8 gm/kgBW) d/t pt is with BERNARDINO Will continue to monitor and reassess prn. LABS: BUN 38 H, CREAT 1.72 H, CA 8.1 L, ALB 2.0 L GI: Pt had no BM today BS: 10 high risk. Refer to wound assessment report for further details. PES: 1) Increased nutrient needs r/t pt is with no PO intake aeb Pt is intbated, sedated, NPO 2) Obesity r/t energy intake in excess of energy needs aeb BMI of 36.9 kg/m2 3) Altered nutrition related lab values r/t current/chronic medical condition aeb elev RFTs, hyperglycemia, elev A1c, hypokalemia, hypocalcemia, hypoalbuminemia, Comments Will continue to monitor PO status, skin status, pertinent labs and weight trends. Will f/u in 2-3 days 1) Continue to closely monitor pt NPO status 2) If pt remains NPO for the next 48 hours, suggest alternate nutrition support. If GI is preferred route, consider Glucerna 1.2 @80ml/hr goal rate. 3) Gradually advance pt diet when medically feasible, as tolerated and per MD approval. 4) Consider a daily MVI with 500mg VitC BId for wounds 5) If albumin continues trending down with improved RFTs, consider Prostat 1 pkt BID 6) Refer pt to a RD/CDE upon D/C 7) Continue current plan of care
[2020-08-05] MEDS: AMINO ACID INFUSION IN D10W 1,000 ML IV NR (21:31)
[2020-08-05] MEDS: FAMOTIDINE (10MG/ML) 2ML VL IV SCH (21:34)
[2020-08-05] MEDS ORDERED: cloNIDine HCL 0.1 MG TAB PO PRN (23:30)
[2020-08-06] MEDS: ACCU-CHEK COMFORT CURVE STRIP VI SCH ×6 (00:03→20:00)
[2020-08-06] MEDS: InsuLIN REG 1unit/0.01ml Soln (100units/ml) SC SCH ×5 (04:50→20:35)
[2020-08-06 06:58] LABS: Basophils # (auto) 0 10 ^3/uL (0-0.2); Basophils % (auto) 0.3 % (0.0-2.0); Eosinophils # (auto) 0 10 ^3/uL (0-0.8); Eosinophils % (auto) 0.2 % (0.0-7.0); Hemoglobin 12.5 g/dL (12.2-16.2); Lymphocytes # (auto) 1.4 10 ^3/uL (0.4-5.4); Lymphocytes % (auto) 17.3 % (10.0-50.0); Mean Corpuscular Hemoglobin 29.7 pg (28.0-32.0); Mean Corpuscular Hgb Conc. 32.8 g/dL (32.0-36.0); Mean Corpuscular Volume 90.5 fL (80.0-100.0); Monocytes # (auto) 0.7 10 ^3/uL (0-1.3); Monocytes % (auto) 8.9 % (0.0-12.0); Neutrophils # (auto) 6.1 10 ^3/uL (1.6-8.6); Neutrophils % (auto) 73.3 % (37.0-80.0); Platelet Count (auto) 258 10^3/uL (140-450); Red Cell Distribution Width 15.6 % (11.8-14.3); White Blood Cell 8.3 10^3/uL (4.4-10.8)
[2020-08-06] MEDS: LEVOTHYROXINE SODIUM 25 MCG TAB PO SCH (07:00)
[2020-08-06 07:37] LABS: Albumin 2.5 g/dL (3.4-5.0); BUN/Creatinine Ratio 24.5; Bilirubin, Total 1.1 mg/dL (0.2-1.0); Calcium 8.7 mg/dL (8.5-10.1); Magnesium 1.5 mg/dL (1.6-2.6); Phosphorus 3.6 mg/dL (2.5-4.90); Pre Albumin 14.9 mg/dL (20.0-40.0); Total Protein 6.8 g/dL (6.4-8.2)
[2020-08-06 07:48] LABS: Potassium 2.5 mmol/L (3.5-5.1)
[2020-08-06] MEDS: cefTRIAXone 1GM/50ML D5W 50 ML IV SCH (09:00)
[2020-08-06] MEDS: FAMOTIDINE (10MG/ML) 2ML VL IV SCH ×2 (09:34→22:12)
[2020-08-06] MEDS: DexAMETHasone SOD PHOS 10MG/1ML VIAL INJ IV SCH (09:34)
[2020-08-06] MEDS: INSULIN LANTUS (GLARGINE) 1 /0.01ml (100units/ml) SC SCH (09:35)
[2020-08-06] MEDS: ENOXAPARIN SOD 40 MG/0.4 ML SYRINGE SC SCH (09:35)
[2020-08-06] MEDS: TACROLIMUS 1 MG CAP PO SCH ×2 (09:35→22:00)
[2020-08-06] MEDS ORDERED: MAGNESIUM SULFATE 1GM/100ML 100 ML IV ONE (10:00)
[2020-08-06] MEDS: DOXYCYCLINE 100MG/250ML 250 ML IV SCH ×2 (10:38→22:33)
--- NOTE | 2020-08-06 11:11 | NUR ---
Nutrition Followup Notes Pt wt is 51.4 kg, pt current wt listed in chart is likely erroneous pt was 116-118kg last visits. Pt sitting up with tray per RN note. Pt started on TPN per MD note, pt TPN is ordered at 49ml/hr providing 1150 kcal, 50g protein and 950 NPCs. This provides 44-51% of energy needs and 55-88% of protein needs. Est Energy needs: 1193-2426 kcals (20-23 kcal/kgBW) d/t pt is with BERNARDINO, adiposity Est Protein needs: 57-91 gms/day (0.5-0.8 gm/kgBW) d/t pt is with BERNARDINO Will continue to monitor and reassess prn. LABS: K 2.5L, BUN 27H, Creat 1.10H, Alb 2.5L, T bili 1.1H, GLUC 246H GI: Pt had no BM today BS: 10 high risk. Refer to wound assessment report for further details. PES: Resolved: 1) Increased nutrient needs r/t pt is with no PO intake aeb Pt is intbated, sedated, NPO Pt wt is now 51.4kg, new wt is likely erroneous as pt previous visit wt was 116-118kg 2) Obesity r/t energy intake in excess of energy needs aeb BMI of 36.9 kg/m2 3) Altered nutrition related lab values r/t current/chronic medical condition aeb elev RFTs, hyperglycemia, elev A1c, hypokalemia, hypocalcemia, hypoalbuminemia, Comments Will continue to monitor PO status, skin status, pertinent labs and weight trends. Will f/u in 2-3 days 1) Advance TPN to meet >75% 2) DC TPN if pt able to tolerate po intake and consume >75% of needs 3) Consider a daily MVI with 500mg VitC BId for wounds 4) If albumin continues trending down with improved RFTs, consider Prostat 1 pkt BID 5) Refer pt to a RD/CDE upon D/C 6) Continue current plan of care
[2020-08-06] MEDS: POTASSIUM CHL 20MEQ/100ML 100 ML IV SCH ×3 (11:28→15:00)
[2020-08-06] MEDS ORDERED: REMDESIVIR PER PHARMACY 0 ML IV SCH (17:15)
[2020-08-06 19:20] LABS: BUN/Creatinine Ratio 28.3; Calcium 8.3 mg/dL (8.5-10.1); Potassium 3.5 mmol/L (3.5-5.1)
[2020-08-06] MEDS: AMINO ACID INFUSION IN D10W 1,000 ML IV NR (19:49)
[2020-08-06] MEDS ORDERED: REMDESIVIR 200 MG in NS 210ml LOADING DOSE ADULT IV ONE (20:00)
[2020-08-06] MEDS ORDERED: TPN PER PHARMACY IV NR ×9 (20:00)
--- NOTE | 2020-08-06 20:28 | NUR ---
CLINIMIX MEDICATION NOT AVAILABLE PHARMACY CLOSED.
--- NOTE | 2020-08-06 22:30 | NUR ---
Prograf and remdesivir not available. Notified off site pharmacy. Paged house sup as well. non-admin medication due to unavailability.
--- NOTE | 2020-08-07 | NUR ---
Non admin insulin due to pt not having eaten and stabilization d/c of clindamix.
[2020-08-07] MEDS: ACCU-CHEK COMFORT CURVE STRIP VI SCH ×6 (00:10→20:00)
--- NOTE | 2020-08-07 02:30 | NUR ---
Obtained telephone verbal consent with mother with other RN witnessing for remdesivir and convalescent plasma.
[2020-08-07] MEDS: InsuLIN REG 1unit/0.01ml Soln (100units/ml) SC SCH ×6 (04:00→20:34)
--- NOTE | 2020-08-07 06:30 | NUR ---
Emptied 700ml Yellow, clear odorless, urine.
[2020-08-07] MEDS: LEVOTHYROXINE SODIUM 25 MCG TAB PO SCH (06:48)
--- NOTE | 2020-08-07 07:10 | NUR ---
Pt is AxO x2 throughout the night. Periods of confusions with denying PO medication.
[2020-08-07] MEDS: cefTRIAXone 1GM/50ML D5W 50 ML IV SCH (09:05)
[2020-08-07] MEDS: TACROLIMUS 1 MG CAP PO SCH ×2 (10:00→22:49)
[2020-08-07] MEDS: ENOXAPARIN SOD 40 MG/0.4 ML SYRINGE SC SCH (10:59)
[2020-08-07] MEDS: DOXYCYCLINE 100MG/250ML 250 ML IV SCH ×2 (10:59→22:49)
[2020-08-07] MEDS: FAMOTIDINE (10MG/ML) 2ML VL IV SCH ×2 (10:59→22:49)
[2020-08-07] MEDS: INSULIN LANTUS (GLARGINE) 1 /0.01ml (100units/ml) SC SCH (10:59)
--- NOTE | 2020-08-07 12:11 | NUR ---
MS admit from ER ALEXYS PUCKETT admitted to tele/MS after SBAR received. Patient oriented to TING ALEJANDRA, RN primary RN, tele unit, room 207, and unit policies regarding patient care and visiting hours. Patient weighed by bedscale and encouraged to call if they need something. All questions and concerns addressed, patient verbalized understanding.
[2020-08-07] MEDS: DexAMETHasone SOD PHOS 10MG/1ML VIAL INJ IV SCH (12:36)
[2020-08-07 13:00] VITALS: BP 152/86
[2020-08-07] MEDS: REMDESIVIR 100 MG in SODIUM CHL 0.9% 250 ML IV SCH (15:35)
[2020-08-07 17:00] VITALS: BP 135/80
--- NOTE | 2020-08-07 17:20 | NUR ---
Mccallum dc'd: 10cc aspirated out of balloon, catheter intact, 450 dark john noted in bag on dc. will continue to monitor.
--- NOTE | 2020-08-07 18:54 | NUR ---
care endorsed to noc rn.
--- NOTE | 2020-08-07 20:45 | NUR ---
ELEVATED BLOOD SUGAR/ MADE HOSPITALIST AWARE BLOOD SUGAR 425. ADMINISTERED 20 UNITS OF REGULAR INSULIN. PATIENT HAS NO S/S OF DISTRESS OR SOB. NO NEW ORDERS RECEIVED. WILL CONTINUE TO MONITOR PATIENT Q1 AND PRN.
[2020-08-07 22:00] VITALS: BP 114/78
[2020-08-08] VITALS (7 sets, daily range): BP systolic 124–154; BP diastolic 82–104
[2020-08-08] MEDS: ACCU-CHEK COMFORT CURVE STRIP VI SCH ×6 (00:25→22:00)
[2020-08-08] MEDS: InsuLIN REG 1unit/0.01ml Soln (100units/ml) SC SCH ×6 (00:34→23:05)
[2020-08-08] MEDS: LEVOTHYROXINE SODIUM 25 MCG TAB PO SCH (06:32)
--- NOTE | 2020-08-08 06:56 | NUR ---
END OF SHIFT NOTE WILL ENDORSE CARE TO DAYSHIFT RN. AT THIS TIME PATIENT HAS NO S/S OF DISTRESS OR SOB.
[2020-08-08] MEDS: cefTRIAXone 1GM/50ML D5W 50 ML IV SCH (07:48)
--- NOTE | 2020-08-08 11:00 | NUR ---
Dr. Polk at bedside stated to hold off for the plasma, order cancelled. Blood bank notified.
[2020-08-08] MEDS: FAMOTIDINE (10MG/ML) 2ML VL IV SCH (14:56)
[2020-08-08] MEDS: TACROLIMUS 1 MG CAP PO SCH ×2 (14:56→22:05)
[2020-08-08] MEDS: DexAMETHasone SOD PHOS 10MG/1ML VIAL INJ IV SCH (14:56)
[2020-08-08] MEDS: ENOXAPARIN SOD 40 MG/0.4 ML SYRINGE SC SCH (14:57)
[2020-08-08] MEDS: DOXYCYCLINE 100MG/250ML 250 ML IV SCH (15:02)
[2020-08-08] MEDS: INSULIN LANTUS (GLARGINE) 1 /0.01ml (100units/ml) SC SCH (15:04)
[2020-08-08] MEDS: REMDESIVIR 100 MG in SODIUM CHL 0.9% 250 ML IV SCH (15:57)
--- NOTE | 2020-08-08 16:24 | NUR ---
WOUND CARE NOTE: WOUND CARE IN TO SEE PATIENT FOR REEVALUATION. PATIENT ON TELE FLOOR IN ROOM 207A. PATIENT NOTED TO HAVE STAGE 1 PRESSURE INJURY TO THE RIGHT LATERAL HEEL. WOUND APPEARS TO BE IMPROVING. NO OPEN OR DRAINING AREAS NOTED. NEW PHOTOGRAPH TAKEN AT THIS TIME FOR REFERENCE. Addendum: 08/08/20 at 1650 by IRMA ABEBE RN RN Amended: Links added.
--- NOTE | 2020-08-08 19:20 | NUR ---
Opening Shift Note Received cain Alves RN. Assumed care of patient, awake and alert. No S/S of distress/SOB or pain. Instructed on POC and to call for assist PRN, will continue to monitor for changes Q1hr and PRN. Bed placed in lowest position, bed alarm turned on and call light within reach.
[2020-08-08] MEDS ORDERED: DEXTROSE (50%) 50ML SYRG IV PRN (19:30)
[2020-08-08] MEDS: DOXYCYCLINE 100 MG TAB/CAP PO SCH (22:05)
[2020-08-09 04:00] VITALS: BP 139/84
[2020-08-09 05:00] VITALS: BP 130/76
--- NOTE | 2020-08-09 06:51 | NUR ---
Assisted patient with the bedpan for urination, 250 ML of dark john urine noted.
--- NOTE | 2020-08-09 06:51 | NUR ---
Dare boots on to bilateral feet. Patient tolerated well.
[2020-08-09] MEDS ORDERED: LEVOTHYROXINE SODIUM 25 MCG TAB PO SCH (07:00)
[2020-08-09 07:09] LABS: Basophils # (auto) 0 10 ^3/uL (0-0.2); Basophils % (auto) 0.1 % (0.0-2.0); Eosinophils # (auto) 0.1 10 ^3/uL (0-0.8); Eosinophils % (auto) 0.5 % (0.0-7.0); Hematocrit 34.5 % (36.0-46.0); Hemoglobin 11.9 g/dL (12.2-16.2); Lymphocytes % (auto) 27.6 % (10.0-50.0); Mean Corpuscular Hemoglobin 30.6 pg (28.0-32.0); Mean Corpuscular Hgb Conc. 34.6 g/dL (32.0-36.0); Mean Corpuscular Volume 88.4 fL (80.0-100.0); Monocytes % (auto) 9.5 % (0.0-12.0); Neutrophils # (auto) 6.8 10 ^3/uL (1.6-8.6); Neutrophils % (auto) 62.3 % (37.0-80.0); Platelet Count (auto) 261 10^3/uL (140-450); Red Cell Distribution Width 15.5 % (11.8-14.3)
[2020-08-09] MEDS: LEVOTHYROXINE SODIUM 25 MCG TAB PO SCH (07:13)
[2020-08-09] MEDS: InsuLIN REG 1unit/0.01ml Soln (100units/ml) SC SCH ×4 (07:16→21:45)
[2020-08-09] MEDS: ACCU-CHEK COMFORT CURVE STRIP VI SCH ×4 (07:16→21:45)
[2020-08-09 07:24] LABS: Calcium 8.1 mg/dL (8.5-10.1); Magnesium 1.4 mg/dL (1.6-2.6)
[2020-08-09 07:32] LABS: BUN/Creatinine Ratio 32.6
[2020-08-09 07:40] LABS: Potassium 2.8 mmol/L (3.5-5.1)
[2020-08-09 08:00] VITALS: BP 133/82
--- NOTE | 2020-08-09 11:25 | NUR ---
Nutrition Followup Notes Pt wt 106.5kg Pt is covid positive in covid isolation. Pt no longer with TPN now on CCHO 60g diet with a good po intake aeb pt with 100% po intake x 2 days per Rn note Est Energy needs: 8925-3540 kcals (20-23 kcal/kgBW) d/t pt is with BERNARDINO, adiposity Est Protein needs: 57-91 gms/day (0.5-0.8 gm/kgBW) d/t pt is with BERNARDINO Will continue to monitor and reassess prn. LABS: Na 133L, K 2.8L, BUN 29H, GLUC 163H, Alb 2.5L, Ca 8.1L GI: Pt with 1 BM 08/09 per Rn note BS: 17 mod risk. Refer to wound assessment report for further details. PES: Resolved: 1) Increased nutrient needs r/t pt is with no PO intake aeb Pt is intbated, sedated, NPO 2) Obesity r/t energy intake in excess of energy needs aeb BMI of 36.9 kg/m2 3) Altered nutrition related lab values r/t current/chronic medical condition aeb elev RFTs, hyperglycemia, elev A1c, hypokalemia, hypocalcemia, hypoalbuminemia, Comments Will continue to monitor PO status, skin status, pertinent labs and weight trends. Will f/u in 3-5 days 1) Consider a daily MVI with 500mg VitC BId for wounds 2) If albumin continues trending down with improved RFTs, consider Prostat 1 pkt BID 3) Refer pt to a RD/CDE upon D/C 4) Continue current plan of care
[2020-08-09] MEDS: cefTRIAXone 1GM/50ML D5W 50 ML IV SCH (11:34)
[2020-08-09] MEDS: ENOXAPARIN SOD 40 MG/0.4 ML SYRINGE SC SCH (11:34)
[2020-08-09] MEDS: DOXYCYCLINE 100 MG TAB/CAP PO SCH ×2 (11:34→21:43)
[2020-08-09] MEDS: DexAMETHasone 4 MG TAB PO SCH (11:35)
[2020-08-09] MEDS: FAMOTIDINE 20 MG TAB PO SCH (11:35)
[2020-08-09] MEDS: BENAZEPRIL HCL 10 MG TAB PO SCH (11:35)
[2020-08-09] MEDS: TACROLIMUS 1 MG CAP PO SCH ×2 (11:36→21:43)
[2020-08-09] MEDS: INSULIN LANTUS (GLARGINE) 1 /0.01ml (100units/ml) SC SCH (11:38)
--- NOTE | 2020-08-09 11:40 | NUR ---
DR MARIE IN TO SEE PT. MADE AWARE OF K+ RESULTS.
[2020-08-09] MEDS: POTASSIUM CHL 20 Meq TABLET PO SCH ×2 (13:53→17:44)
[2020-08-09] MEDS: MAGNESIUM SULFATE 1GM/100ML 100 ML IV SCH ×2 (13:53→15:07)
[2020-08-09] MEDS: REMDESIVIR 100 MG in SODIUM CHL 0.9% 250 ML IV SCH (15:07)
[2020-08-09 16:00] VITALS: BP 120/70
--- NOTE | 2020-08-09 16:00 | NUR ---
PT SUSTAINED FALL. ON TRANSFERRING FROM BSC TO BED. PT DENIES PAIN. ROM. PT MADE COMFORTABLE IN BED, COMPLETE BED LINEN CHANGE. PAGED.
[2020-08-09] MEDS ORDERED: POTASSIUM CHL 20 Meq TABLET PO SCH (17:45)
--- NOTE | 2020-08-09 19:15 | NUR ---
Opening Shift Note Received report from cain Alexander RN. Assumed care of patient, awake and alert. No S/S of distress/SOB or pain. Instructed on POC and to call for assist PRN, will continue to monitor for changes Q1hr and PRN. Bed placed in lowest position, bed alarm turned on and call light within reach.
--- NOTE | 2020-08-09 20:03 | NUR ---
[place] boots on to bilateral feet.
--- NOTE | 2020-08-09 21:30 | NUR ---
Dr Johnston at bedside
[2020-08-09 21:55] LABS: Cholesterol 212 mg/dL (< 200)
[2020-08-09 21:59] LABS: HDL Cholesterol 48 mg/dL (40-59); LDL Cholesterol 129 mg/dL (< 100); Triglycerides 173 mg/dL (< 150)
[2020-08-09 22:00] VITALS: BP 101/63
[2020-08-10 05:00] VITALS: BP 99/61
[2020-08-10 06:28] LABS: Potassium 4.1 mmol/L (3.5-5.1)
[2020-08-10 06:32] LABS: BUN/Creatinine Ratio 30.8; Calcium 8.3 mg/dL (8.5-10.1); Magnesium 1.9 mg/dL (1.6-2.6)
[2020-08-10] MEDS: ACCU-CHEK COMFORT CURVE STRIP VI SCH ×3 (06:44→17:08)
[2020-08-10] MEDS: LEVOTHYROXINE SODIUM 25 MCG TAB PO SCH (06:45)
[2020-08-10] MEDS: InsuLIN REG 1unit/0.01ml Soln (100units/ml) SC SCH ×3 (06:46→17:07)
--- NOTE | 2020-08-10 07:00 | NUR ---
Patient refused Sarah boots this morning and wants to be off of boots.
--- NOTE | 2020-08-10 07:00 | NUR ---
Assisted patient to use bedpan X 3 this shift. Urine output is clear and yellow.
[2020-08-10 08:19] VITALS: BP 111/72
--- NOTE | 2020-08-10 09:00 | NUR ---
PT TAKEN TO RADIOLOGY
--- NOTE | 2020-08-10 09:14 | NUR ---
PT BACK FROM RADIOLOGY. NO S/S OF DISTRESS.
[2020-08-10] MEDS ORDERED: ASPirin-EC 81 mg tab PO SCH (10:00)
[2020-08-10] MEDS: DOXYCYCLINE 100 MG TAB/CAP PO SCH (10:28)
[2020-08-10] MEDS: ENOXAPARIN SOD 40 MG/0.4 ML SYRINGE SC SCH (10:28)
[2020-08-10] MEDS: BENAZEPRIL HCL 10 MG TAB PO SCH (10:29)
[2020-08-10] MEDS: DexAMETHasone 4 MG TAB PO SCH (10:29)
[2020-08-10] MEDS: cefTRIAXone 1GM/50ML D5W 50 ML IV SCH (10:30)
[2020-08-10] MEDS: FAMOTIDINE 20 MG TAB PO SCH (10:30)
[2020-08-10] MEDS: TACROLIMUS 1 MG CAP PO SCH (10:30)
--- NOTE | 2020-08-10 11:55 | NUR ---
DR. REILLY IN TO SEE PT. ORTHO DEPT. CONTACTED FOR FOOT DROP. DEPT WILL PROVIDE BOOT.
[2020-08-10 12:30] VITALS: BP_SYST 113; BP_SYST 155; BP_DIAS 55; BP_DIAS 91
[2020-08-10] MEDS: INSULIN LANTUS (GLARGINE) 1 /0.01ml (100units/ml) SC SCH (13:31)
--- NOTE | 2020-08-10 14:56 | NUR ---
FOOT DROP BOOT DELIVERED BY PHYSICAL THERAPY STAFF.
[2020-08-10] MEDS: REMDESIVIR 100 MG in SODIUM CHL 0.9% 250 ML IV SCH (15:13)
--- NOTE | 2020-08-10 16:18 | NUR ---
D/C Planning Regarding social service consult for physical therapy and left foot boot. Left foot boot has been deliver to patient by physical therapy. Faxed clinical information to [facility]. Per Mary Ann with [facility] patient has been accepted and service to start within 24-48hrs upon d/c day. RAYRAY Welch will obtain authorization from [employer] [facility].
--- NOTE | 2020-08-10 16:31 | NUR ---
I faxed home health order to [facility]-requesting authorization for [facility]. I called [employer] Sales Project Manager Henrik [phone] ext [phone] and left message regarding the same.
[2020-08-10 18:03] VITALS: BP 124/84
--- NOTE | 2020-08-10 19:18 | NUR ---
DISCHARGE INSTRUCTIONS PROVIDED TO PT AND SPOKE TO MOTHER (CHIDI). BOTH VERBALIZED UNDERSTANDING FOR PRESCRIPTION ORDERS, CONTINUATION OF HOME MEDICATIONS AND FOLLOW UP APPOINTMENT WITH PRIMARY MD. EDUCATIONAL MATERIAL PROVIDED, ALL QUESTIONS AND CONCERNS ADDRESSED. TLC DC'D, TEGADERM DRESSING PLACED, HEMOSTASIS ACHIEVED, NO COMPLICATIONS. WOUND PICTURES TAKEN AND DOCUMENTED, MRSA SPECIMEN COLLECTED, SENT TO LAB, HOME MEDICATIONS GIVEN TO PT. TELE BOX REMOVED AND RETURNED TO TELE DEPT. PT WEARING FOOT DROP BOOT. PT SAFELY ESCORTED OUT OF UNIT VIA WHEELCHAIR. NO S/S OF DISTRESS.
--- NOTE | 2020-08-11 10:21 | NUR ---
I received a call from Jyoti orta ROSAMOND-she will send authorization to [facility]. Faxed her requested PT evaluation.
== END 2020-08-10 19:10 | disposition home or self-care (01) | DRG 720 ==
LOC: EDBD 13:38 → ER 13:38 → OVERFLOW 13:39 → TELE-CENTR 08-07 12:26 → TELE-WESTW 08-08 17:35
PROVIDERS: ADMIT Nurse Practitioner Acute Care; ATTEND Internal Medicine
PROC: 0BH17EZ Insertion of Endotracheal Airway into Trachea, Via Natural or Artificial Opening (ICD-10-PCS; principal; 2020-08-01)
PROC: 5A1945Z Respiratory Ventilation, 24-96 Consecutive Hours (ICD-10-PCS; 2020-08-01)
PROC: 02HV33Z Insertion of Infusion Device into Superior Vena Cava, Percutaneous Approach (ICD-10-PCS; 2020-08-01)
PROC: 3E0436Z Introduction of Nutritional Substance into Central Vein, Percutaneous Approach (ICD-10-PCS; 2020-08-06)
PROC: XW033E5 Introduction of Remdesivir Anti-infective into Peripheral Vein, Percutaneous Approach, New Technology Group 5 (ICD-10-PCS; 2020-08-07)
DX: A41.89 Other specified sepsis (principal); U07.1 COVID-19; J96.01 Acute respiratory failure with hypoxia; N17.0 Acute kidney failure with tubular necrosis; R65.21 Severe sepsis with septic shock; J12.89 Other viral pneumonia; E10.10 Type 1 diabetes mellitus with ketoacidosis without coma; G93.41 Metabolic encephalopathy; Z94.4 Liver transplant status; E87.5 Hyperkalemia; D68.59 Other primary thrombophilia; E66.01 Morbid (severe) obesity due to excess calories; L89.611 Pressure ulcer of right heel, stage 1; E87.6 Hypokalemia; E03.9 Hypothyroidism, unspecified; I10 Essential (primary) hypertension; M21.372 Foot drop, left foot; Z79.4 Long term (current) use of insulin; Z68.34 Body mass index [BMI] 34.0-34.9, adult; Z79.82 Long term (current) use of aspirin; Z82.49 Family history of ischemic heart disease and other diseases of the circulatory system; Z83.3 Family history of diabetes mellitus
CPT/HCPCS: 31500; 36415; 36600; 70450; 71045; 76775; 80048; 80053; 80061; 80197; 81001; 82010; 82040; 82570; 82805; 82962; 83036; 83605; 83735; 83880; 83930; 84100; 84132; 84156; 84300; 84443; 84478; 84484; 84702; 85025; 86850; 86900; 86901; 87040; 87081; 87426; 93005; 93306; 93886; 94002; 94003; 96365; 96366; 96372; 97163; G0378; J0330; J0696; J1100; J1815; J2001; J2250; J2704; J3480; J3490; J7060; J7131; J7507

== ENCOUNTER 2024-11-27 04:24 | Inpatient (IN) | payer OTHER ==
[~2024-11-27] VITALS: Ht 167.6 cm; Wt 133.9 kg
[~2024-11-27 04:24] MED LIST changes: -BENA40TA7; +BENA40TA71
[2024-11-27 04:54] VITALS: PULSE 106; RESP 22; O2SAT 96
--- NOTE | 2024-11-27 05:23 | ED.PDOC ---
History of Present Illness HPI Comments 38 y/o morbidly obese F, with a history of BERNARDINO, DM, DKA, HLD, HTN, Thyroid disease, Covid19 PNA w/sepsis, and liver transplant, is BIBA for c/o hypoglycemia, today. Per EMS report, patient's sister called after endorsing on finding the patient altered, this morning, and suspecting her being hyperglycemic, due to previous episode she had a month ago. Patient was noted to have had an initial blood glucose reading on scene of 20. She was given 1x bottle of [place] D juice and glucose paste en route, with last blood glucose measure prior to ED arrival being 45. Upon arrival to ED, patient has a blood glucose of 72. At time of initial encounter and assessment with patient, she is awake and alert, stating on having limited recollection of events aside from her being informed on being hyperglycemic. She admits to compliancy with her insulin medications, lately, eating dinner the night prior, and having no recent ailments. Patient denies having any symptoms at this time. Chief Complaint: Hypoglycemia Time Seen by MD: 05:05 Primary Care Provider: [facility] Reviewed Notes: Nurses Notes, Patrol Judge Notes, Medications, Allergies Allergies: Coded Allergies: NO KNOWN ALLERGIES (Unverified , 07/31/20) Home Meds Reported Medications Tacrolimus (Tacrolimus) 1 Mg Cap, 3 MG PO QPM, CAP 02/04/20 Tacrolimus (Tacrolimus) 1 Mg Cap, 2 MG PO QAM, CAP 02/04/20 Insulin Lispro (Admelog) 100 Unit/Ml Inj 02/04/20 Benazepril Hcl (Benazepril Hcl) 40 Mg Tab 02/04/20 Insulin Glargine (Lantus) 100 Unit/Ml Inj, 14 UNIT SC BID, INJ 02/04/20 Metformin Hydrochloride (Metformin Hcl) 1,000 Mg Tab 02/04/20 Levothyroxine Sodium (Levothyroxine Sodium) 75 Mcg Tab 12/03/18 Information Source: Patient, Emergency Med Personnel Mode of Arrival: Ambulatory Severity: Moderate Timing: Hours Duration: Since onset Prehospital treatment: 12 Lead EKG, Real Estate Appraiser Supervisor, Other (glucose paste; [place] juice ) Past Medical History PAST MEDICAL HISTORY: DM, High Lipids, HTN, Thyroid (hypothryoidism ) Past Medical History (Other): morbid obesity DKA BERNARDINO Covid19 PNA w/sepsis Surgical History (Other): liver transplant Family History Family History: Family hx of DM, Family hx of HTN Social History Smoker: Non-Smoker Alcohol: Denies ETOH Use Drugs: Denies Drug Use Lives In: Home All Other Systems: Reviewed and Negative (Comprehensive systems review obtained and negative except for what is stated in the HPI.) Physical Exam General Appearance: No Apparent Distress, Obese HEENT: Normal ENT Inspection, Pharynx Normal, TMs Normal Neck: Full Range of Motion, Non-Tender, Normal, Normal Inspection Respiratory: Chest Non-Tender, Lungs Clear, No Accessory Muscle Use, No Respiratory Distress, Normal Breath Sounds Cardiovascular: No Edema, No JVD, No Murmur, No Gallop, Normal Peripheral Puls es, Regular Rate/Rhythm Breast Exam: Deferred Gastrointestinal: No Organomegaly, Non Tender, No Pulsatile Mass, Normal Bowel Sounds, Soft Genitalia: Deferred Pelvic: Deferred Rectal: Deferred Extremities: No calf tenderness, Normal capillary refill, Normal inspection, Normal range of motion, Non-tender, No pedal edema Musculoskeletal : Apperance: Normal Neurologic: Alert, director of enterprise architecture II-XII nml as Tested, No Motor Deficits, Normal Affect, Normal Mood, No Sensory Deficits Cerebellar Function: Normal Reflexes: Normal Skin: Dry, Normal Color, Warm Lymphatic: No Adenopathy Was a procedure done? Was a procedure done?: No Differential Dx Considerations may include: hypoglycemia, inappropriate medication dosage X-Ray, Labs, Meds, VS Vital Signs Date Time Temp Pulse Resp B/P (MAP) Pulse Ox O2 Delivery O2 Flow Rate FiO2 11/27/24 04:54 106 22 96 Room Air* 0 21 11/27/24 04:47 97.4 107 26 152/64 (93) 96 97.4 11/27/24 04:25 98.0 90 24 150/89 (109) 95 98.0 Lab Test 11/27/24 05:18 11/27/24 04:46 Range/Units White Blood Count 11.6 H 4.4-10.8 10^3/uL Red Blood Count 3.91 L 4.0-5.20 10^6/uL Hemoglobin 12.1 L 12.2-16.2 g/dL Hematocrit 37.8 36.0-46.0 % Mean Corpuscular Volume 96.6 80.0-100.0 fL Mean Corpuscular Hemoglobin 30.8 28.0-32.0 pg Mean Corpuscular Hemoglobin Concent 31.9 L 32.0-36.0 g/dL Red Cell Distribution Width 14.0 11.8-14.3 % Platelet Count 255 140-450 10^3/uL Mean Platelet Volume 8.2 6.9-10.8 fL Neutrophils (%) (Auto) 89.0 H 37.0-80.0 % Lymphocytes (%) (Auto) 6.4 L 10.0-50.0 % Monocytes (%) (Auto) 3.8 0.0-12.0 % Eosinophils (%) (Auto) 0.4 0.0-7.0 % Basophils (%) (Auto) 0.4 0.0-2.0 % Neutrophils # (Auto) 10.3 H 1.6-8.6 10 ^3/uL Lymphocytes # (Auto) 0.7 0.4-5.4 10 ^3/uL Monocytes # (Auto) 0.4 0-1.3 10 ^3/uL Eosinophils # (Auto) 0 0-0.8 10 ^3/uL Basophils # (Auto) 0 0-0.2 10 ^3/uL Nucleated Red Blood Cells 0.1 % Sodium Level 140 136-145 mmol/L Potassium Level 3.4 L 3.5-5.1 mmol/L Chloride Level 110 H 98-107 mmol/L Carbon Dioxide Level 19 L 20-31 mmol/L Anion Gap 11 5-15 Blood Urea Nitrogen 19 9-23 mg/dL Creatinine 0.94 0.550-1.02 mg/dL Glomerular Filtration Rate Calc 80 >90 mL/min BUN/Creatinine Ratio 20.2 H 10.0-20.0 Serum Glucose 67 L 74-106 mg/dL Calcium Level 9.3 8.7-10.4 mg/dL Total Bilirubin 0.6 0.2-1.0 mg/dL Aspartate Amino Transferase (AST) 51 H 13-40 U/L Alanine Aminotransferase (ALT) 41 H 7-40 U/L Alkaline Phosphatase 248 H 46-116 U/L Total Protein 7.5 5.7-8.2 g/dL Albumin 4.2 3.2-4.8 g/dL POC Glucose 72 70-106 mg/dl Time of 1ST Reevaluation: 05:35 Reevaluation 1ST: Unchanged Patient Education/Counseling: Diagnosis, Treatment Family Education/Counseling: No Family Present Additional Information Previous medical encounters reviewed: July 31, 2020 encounter for diabetic ketoacidosis The following tests were ordered, and results were reviewed by me: CMP, CBC, blood glucose Additional Information was gathered from interviewing the following independent historians: n/a I reviewed and agreed with the following test results read by other providers: n/a I discussed treatment and results with medical personnel and: Patient Sepsis focused exam: focus exam completed (In the initial resuscitation at least 30 mL/kg of IV crystalloid fluid was NOT given within the first 3 hr due to concerns of fluid overload), time: (0530) Sepsis Sepsis Reasesment Focused Exam Sepsis focused exam: focus exam completed (In the initial resuscitation at least 30 mL/kg of IV crystalloid fluid was NOT given within the first 3 hr due to concerns of fluid overload), time: (0600) Departure 1 Departure Time of Disposition: 06:11 Impression: Primary Impression: Hypoglycemia due to type 1 diabetes mellitus Additional Impression: Suspected COVID-19 virus infection Disposition: ADMITTED INPATIENT Condition: Guarded Discharged With: Self Comments Altered Mental Status with Hypoglycemia Chief Complaint: Altered mental status with hypoglycemia History of Present Illness: 38-year-old female with poorly controlled type 1 diabetes was brought to the ED by family members after being found with altered mental status. Initial blood glucose at home was critically low at 20 mg/dL. EMS administered D50 at the scene. Upon ED arrival, blood glucose improved to 60 mg/dL and further increased to 70 mg/dL after juice administration, with concurrent improvement in mental status. Patient presented with tachycardia at 115 bpm, which improved slightly to 105 bpm after IV fluid administration. Given the presentation with elevated WBC, there is concern for underlying infectious process contributing to the patient's condition. Review of Systems: Constitutional: Positive for altered mental status Cardiovascular: Positive for tachycardia All other systems: Limited review due to patient's initial mental status Past Medical History: 1. Type 1 Diabetes Mellitus, poorly controlled 2. Hypertension 3. Hyperlipidemia 4. Renal insufficiency Vital Signs: Heart Rate: Initially 115 bpm, improved to 105 bpm after IV fluids Other vital signs not documented in current gravure printing machinist Physical Exam: Limited physical exam documentation in current gravure printing machinist Lab Results: WBC: 11.6 (Elevated) Potassium: 3.4 (Mildly decreased) Glucose: 67 mg/dL Pending studies: - Urinalysis - Blood cultures - Influenza swab - COVID-19 swab Imaging and Other Relevant Results: No imaging studies documented in current gravure printing machinist Medical Decision Making: Summary Statement: 38-year-old female with poorly controlled diabetes presenting with altered mental status and severe hypoglycemia, complicated by tachycardia and elevated WBC count suggesting possible underlying infection. Problem List: 1. Severe hypoglycemia 2. Altered mental status 3. Tachycardia 4. Leukocytosis 5. Hypokalemia 6. Poorly controlled diabetes Differential Diagnosis: 1. Sepsis 2. Medication-induced hypoglycemia 3. Diabetic ketoacidosis 4. Acute kidney injury 5. Medication non-compliance ED Course: Patient received D50 from EMS, followed by juice in ED with improvement in mental status. IV fluids administered with partial improvement in tachycardia. Multiple diagnostic studies pending to evaluate for infectious source. Assessment and Plan: 1. Hypoglycemia with Altered Mental Status: - Improved with D50 and juice administration - Requires close blood glucose monitoring - Need to evaluate current diabetes medication regimen 2. Suspected Infection: - Elevated WBC count with tachycardia - Pending blood cultures, UA, flu, and COVID testing - Will start empiric antibiotics if indicated by results 3. Hypokalemia: - Will correct with IV supplementation Disposition: Admit to medical floor for: - Blood glucose stabilization - IV hydration - Infectious workup completion - Diabetes medication adjustment Billing Information: ICD-10: E16.2 - Hypoglycemia, unspecified ICD-10: R41.82 - Altered mental status, unspecified ICD-10: E11.65 - Type 2 diabetes mellitus with hyperglycemia ICD-10: R00.0 - Tachycardia, unspecified Critical Care Note Critical Care Time?: Yes (35 min-critical care time only) Critical care comment: Total critical care time: Approximately 36 minutes Due to a high probability of clinically significant, life threatening deterioration, the patient required my highest level of preparedness to intervene emergently and I personally spent this critical care time directly and personally managing the patient. This critical care time included obtaining a history; examining the patient; pulse oximetry; ordering and review of studies; arranging urgent treatment with development of a management plan; evaluation of patient's response to treatment; frequent reassessment; and, discussions with other providers. This critical care time was performed to assess and manage the high probability of imminent, life-threatening deterioration that could result in multi-organ failure. It was exclusive of separately billable procedures and treating other patients. Stability Stability form required: No Heart Score Heart Score: Heart Score Response (Comments) Value History N/A 0 EKG N/A 0 Age N/A 0 Risk Factors N/A 0 Troponin N/A 0 Total 0 I personally scribed for CHIRAG BOURNE MD ([email or web address]) on 11/27/24 at 05:23. Electronically submitted by Dong Carmichael ([email or web address]). CHIRAG BOURNE MD Nov 27, 2024 05:23
[2024-11-27 05:38] LABS: Basophils # (auto) 0 10 ^3/uL (0-0.2); Basophils % (auto) 0.4 % (0.0-2.0); Eosinophils # (auto) 0 10 ^3/uL (0-0.8); Eosinophils % (auto) 0.4 % (0.0-7.0); Hematocrit 37.8 % (36.0-46.0); Hemoglobin 12.1 g/dL (12.2-16.2); Lymphocytes # (auto) 0.7 10 ^3/uL (0.4-5.4); Lymphocytes % (auto) 6.4 % (10.0-50.0); Mean Corpuscular Hemoglobin 30.8 pg (28.0-32.0); Mean Corpuscular Hgb Conc. 31.9 g/dL (32.0-36.0); Mean Corpuscular Volume 96.6 fL (80.0-100.0); Monocytes # (auto) 0.4 10 ^3/uL (0-1.3); Monocytes % (auto) 3.8 % (0.0-12.0); Neutrophils # (auto) 10.3 10 ^3/uL (1.6-8.6); Nucleated Red Blood Cells % 0.1 %; Platelet Count (auto) 255 10^3/uL (140-450); Red Blood Cells 3.91 10^6/uL (4.0-5.20); White Blood Cell 11.6 10^3/uL (4.4-10.8)
[2024-11-27 05:57] LABS: Albumin 4.2 g/dL (3.2-4.8); Anion Gap 11 (5-15); BUN/Creatinine Ratio 20.2 (10.0-20.0); Bilirubin, Total 0.6 mg/dL (0.2-1.0); Blood Urea Nitrogen 19 mg/dL (9-23); Calcium 9.3 mg/dL (8.7-10.4); Sodium 140 mmol/L (136-145); Total Protein 7.5 g/dL (5.7-8.2)
[2024-11-27 06:03] LABS: Carbon Dioxide 19 mmol/L (20-31); Chloride 110 mmol/L (98-107); Potassium 3.4 mmol/L (3.5-5.1)
[2024-11-27 06:04] LABS: Alanine Aminotransferase 41 U/L (7-40); Alkaline Phosphatase 248 U/L (46-116); Aspartate Aminotransferase 51 U/L (13-40); Glucose 67 mg/dL (74-106)
[2024-11-27] MEDS: SODIUM CHLORIDE 0.9% 1,000 ML IV ONE (06:10)
[2024-11-27] MEDS: PIPERACILLIN-TAZOB 3.375GM 100 ML IV ONE (06:11)
--- NOTE | 2024-11-27 06:27 | DVH ---
CHEST RADIOGRAPH Indication: Weak, tachy, sob Technique: Single frontal view of the chest was obtained Comparison: CHEST PORTABLE on DOS: 08/03/20 FINDINGS: Lines and Tubes: None Lungs: No focal consolidation. Pleura: No effusion. No pneumothorax. Cardiomediastinal contours: Unremarkable Bones: No acute osseous abnormality. IMPRESSION: 1. No acute cardiopulmonary disease.
[2024-11-27 07:15] LABS: Urine Bacteria FEW /hpf (None Seen); Urine Blood TRACE /uL (Negative); Urine Clarity Clear (Clear); Urine Color Light-Yellow (Yellow); Urine Protein, UAD 2+ (Negative); Urine Specific Gravity 1.008 (1.001-1.035); Urine Squamous Epithelial Cell FEW /hpf (<5); Urine Urobilinogen Normal (Negative); Urine WBC 1 /HPF (0-5); Urine pH 5.5 (5.0-9.0)
[2024-11-27 07:15] LABS: COVID19 ANTIGEN SOFIA FIA NEGATIVE (NEGATIVE); Rapid Influenza A Negative (Negative); Rapid Influenza B Negative (Negative)
[2024-11-27] MEDS: POTASSIUM CHL 20 Meq TABLET PO ONE (08:15)
[2024-11-27 08:30] VITALS: PULSE 98; RESP 17; O2SAT 98
[2024-11-27] MEDS ORDERED: ONDANSETRON HCL 4 MG/2 ML VIAL IV PRN (11:15)
[2024-11-27] MEDS ORDERED: MYCO500T3 PO (11:18)
[2024-11-27] MEDS ORDERED: ERGO1CAP12 PO (11:18)
--- NOTE | 2024-11-27 11:23 | DVHHP2 ---
History of Present Illness Reason for Visit: Hypoglycemia History of Present Illness Marcy Edward is a 38-year-old female with past medical history of hypertension, hyperlipidemia, diabetes, DKA, BERNARDINO, thyroid disease, COVID-19, pneumonia, sepsis, liver transplant, and left BKA who presents to the ED with hypoglycemia. Patient's family found her altered and her blood sugar was found to be 20. Patient denies any chest pain, shortness of breath, fever, chills shortness and weakness, dizziness, abdominal pain, nausea, vomiting, and diarrhea. Cardiovascular: HTN, hyperipidemia Pulmonary: Pneumonia Endocrine: Diabetes, Hypothyroidism Past Medical History DKA BERNARDINO COVID-19 Past Surgical History: Other (Left BKA and liver transplant) Family History: DM, Hypertension, Other (Mom with diabetes and hypertension) Smoke: No ALCOHOL: none Drugs: None Lives: with Family Domestic Violence: Neg Review of Systems Neurological: Other (Altered) Allergies: Coded Allergies: NO KNOWN ALLERGIES (Unverified , 07/31/20) Medications Current Medications Medications Dose Ordered Sig/Tami Route Start Time Stop Time Status Last Admin Dose Admin Piperacillin Sod/ Tazobactam Sod 100 ml @ 25 mls/hr Q8HR IV 11/27/24 14:00 Ondansetron HCl 4 mg Q4HP PRN IV 11/27/24 11:15 Enoxaparin Sodium 40 mg DAILY SC 11/28/24 10:00 Acetaminophen 650 mg Q6HP PRN PO 11/27/24 11:15 Tacrolimus 2 mg QAM PO 11/28/24 07:00 UNV Tacrolimus 3 mg QPM PO 11/27/24 18:00 UNV Benazepril HCl 40 mg DAILY PO 11/27/24 11:30 UNV Levothyroxine Sodium 75 mcg QAM@0600 PO 11/28/24 06:00 UNV Ergocalciferol 50,000 unit QWEEKLY PO 11/27/24 11:30 UNV Mycophenolate Mofetil 500 mg BID PO 11/27/24 22:00 UNV Exam Vital Signs Vital Signs Date Time Temp Pulse Resp B/P (MAP) Pulse Ox O2 Delivery O2 Flow Rate FiO2 11/27/24 10:00 92 16 117/64 (81) 98 11/27/24 08:30 Room Air* 0 21 11/27/24 08:00 98.0 98.0 General Appearance: Alert, Oriented X3, Cooperative, No acute distress HEENT: Atraumatic, PERRLA, EOMI, Mucous membr. moist/pink Respiratory: Clear to auscultation, Normal air movement Cardiovascular: Normal S1, Normal S2, No murmurs Abdominal: Normal bowel sounds, Soft, No tenderness, No hepatospenomegaly, No masses Extremities: No clubbing, No cyanosis, Normal pulses, No tenderness/swelling Skin: No significant lesion Neuro: Normal speech, Normal tone, Sensation intact Psych/Mental Status: Mental status NL, Mood NL Labs/Xrays Labs Test 11/27/24 07:48 11/27/24 06:21 11/27/24 06:05 11/27/24 06:00 Range/Units POC Glucose 102 70-106 mg/dl Influenza Type A Antigen Negative Negative Influenza Type B Antigen Negative Negative SARS-CoV-2 Antigen (Rapid) Negative NEGATIVE Lactic Acid Level 1.7 0.4-2.0 mmol/L Urine Color Light-yellow Yellow Urine Clarity Clear Clear Urine pH 5.5 5.0-9.0 Urine Specific [place] 1.008 1.001-1.035 Urine Protein 2+ H Negative Urine Ketones Negative Negative Urine Blood Trace H Negative /uL Urine Nitrite Negative Negative Urine Bilirubin Negative Negative Urine Urobilinogen Normal Negative mg/dL Urine Leukocyte Esterase Negative Negative /uL Urine RBC <1 0 - 4 /hpf Urine Microscopic WBC 1 0-5 /HPF Urine Squamous Epithelial Cells Few <5 /hpf Urine Bacteria Few H None Seen /hpf Urine Glucose Normal Normal mg/dL Test 11/27/24 05:18 Range/Units White Blood Count 11.6 H 4.4-10.8 10^3/uL Red Blood Count 3.91 L 4.0-5.20 10^6/uL Hemoglobin 12.1 L 12.2-16.2 g/dL Hematocrit 37.8 36.0-46.0 % Mean Corpuscular Volume 96.6 80.0-100.0 fL Mean Corpuscular Hemoglobin 30.8 28.0-32.0 pg Mean Corpuscular Hemoglobin Concent 31.9 L 32.0-36.0 g/dL Red Cell Distribution Width 14.0 11.8-14.3 % Platelet Count 255 140-450 10^3/uL Mean Platelet Volume 8.2 6.9-10.8 fL Neutrophils (%) (Auto) 89.0 H 37.0-80.0 % Lymphocytes (%) (Auto) 6.4 L 10.0-50.0 % Monocytes (%) (Auto) 3.8 0.0-12.0 % Eosinophils (%) (Auto) 0.4 0.0-7.0 % Basophils (%) (Auto) 0.4 0.0-2.0 % Neutrophils # (Auto) 10.3 H 1.6-8.6 10 ^3/uL Lymphocytes # (Auto) 0.7 0.4-5.4 10 ^3/uL Monocytes # (Auto) 0.4 0-1.3 10 ^3/uL Eosinophils # (Auto) 0 0-0.8 10 ^3/uL Basophils # (Auto) 0 0-0.2 10 ^3/uL Nucleated Red Blood Cells 0.1 % Sodium Level 140 136-145 mmol/L Potassium Level 3.4 L 3.5-5.1 mmol/L Chloride Level 110 H 98-107 mmol/L Carbon Dioxide Level 19 L 20-31 mmol/L Anion Gap 11 5-15 Blood Urea Nitrogen 19 9-23 mg/dL Creatinine 0.94 0.550-1.02 mg/dL Glomerular Filtration Rate Calc 80 >90 mL/min BUN/Creatinine Ratio 20.2 H 10.0-20.0 Serum Glucose 67 L 74-106 mg/dL Calcium Level 9.3 8.7-10.4 mg/dL Magnesium Level 1.9 1.6-2.6 mg/dL Total Bilirubin 0.6 0.2-1.0 mg/dL Aspartate Amino Transferase (AST) 51 H 13-40 U/L Alanine Aminotransferase (ALT) 41 H 7-40 U/L Alkaline Phosphatase 248 H 46-116 U/L Total Protein 7.5 5.7-8.2 g/dL Albumin 4.2 3.2-4.8 g/dL CHEST RADIOGRAPH Indication: Weak, tachy, sob Technique: Single frontal view of the chest was obtained Comparison: CHEST PORTABLE on DOS: 08/03/20 FINDINGS: Lines and Tubes: None Lungs: No focal consolidation. Pleura: No effusion. No pneumothorax. Cardiomediastinal contours: Unremarkable Bones: No acute osseous abnormality. IMPRESSION: 1. No acute cardiopulmonary disease. Assessment/Plan Assessment/Plan Assessment Leukocytosis Hypoglycemia Acute encephalopathy BERNARDINO Transaminitis Hypokalemia Diabetes type 2 uncontrolled History of hypertension History of hyperlipidemia History of DKA History of hypothyroidism History of COVID-19 History of pneumonia with sepsis History of left BKA History of liver transplant Plan Admit to [facility] IV antibiotics-Zosyn Chest x-ray COVID negative Flu negative Replete lytes IV fluids given ED Chest x-ray noted UA Antiemetics Blood cultures Lactic level Hemoglobin A1c ISS and Accu-Cheks DVT prophylaxis-Lovenox Home medications reconciled PUD prophylaxis-not indicated no history of GERD or GI bleeding Discussed plan of care with patient and nurse Patient is requesting glucometer when discharged Plan discussed with: Patient My Orders Orders - PHILOMENA CHLIDERS Procedure Category Date Status Time Piperacillin-Tazob PHA 11/27/24 In Process 3.375gm (Zosyn 3.375g 14:00 Admit ADMIT 11/27/24 Transmitted 11:13 Allergies GUDELIA 11/27/24 In Process 11:13 Code Status CODE 11/27/24 Transmitted 11:13 Ondansetron Hcl PHA 11/27/24 In Process (Zofran) 11:15 Enoxaparin Sodium PHA 11/28/24 In Process (Lovenox) 10:00 Complete Blood Count LAB 11/28/24 Verified 04:00 Comprehensive LAB 11/28/24 Verified Metabolic Panel 04:00 Cardiac DIET 11/27/24 Transmitted Diet-2gna,Lofat,Lochol Lunch Acetaminophen Tablet PHA 11/27/24 In Process (Tylenol Tablet) 11:15 Tacrolimus (Prograf) PHA 11/28/24 Logged 07:00 Tacrolimus (Prograf) PHA 11/27/24 Logged 18:00 Benazepril Hcl Tablet PHA 11/27/24 Logged (Lotensin Tablet) 11:30 Levothyroxine Tablet PHA 11/28/24 Logged (Synthroid Tablet) 06:00 Ergocalciferol PHA 11/27/24 Logged (Vitamin D 50,000 11:30 Mycophenolate Mofetil PHA 11/27/24 Logged (Cellcept) 22:00 Date of Service: Nov 27, 2024 Billing Provider: PHILOMENA CHILDERS Common Visit Codes: [id number] INP/OBS CARE (HIGH) PHILOMEAN CHILDERS Nov 27, 2024 11:23
[2024-11-27] MEDS ORDERED: DEXTROSE (50%) 50ML SYRG IV PRN (11:30)
[2024-11-27] MEDS: ACCU-CHEK COMFORT CURVE STRIP VI SCH (11:30)
[2024-11-27] MEDS: BENAZEPRIL HCL 10 MG TAB PO SCH (11:30)
[2024-11-27] MEDS: PIPERACILLIN-TAZOB 3.375GM 100 ML IV SCH (14:00)
[2024-11-27] MEDS: InsuLIN REG 1unit/0.01ml Soln (100units/ml) SC SCH (14:51)
[2024-11-27 18:31] VITALS: BP 157/87; PULSE 93; RESP 18; TEMP 98.1; O2SAT 96
[2024-11-27] MEDS: TACROLIMUS 1 MG CAP PO SCH (19:02)
[2024-11-27 21:00] VITALS: BP 150/82; PULSE 97; RESP 17; TEMP 97.8; O2SAT 95
[2024-11-27] MEDS: MYCOPHENOLATE 500 MG TAB PO SCH (21:02)
[2024-11-28 00:59] VITALS: BP 149/86; PULSE 95; RESP 17; TEMP 98.2; O2SAT 94
[2024-11-28 04:52] VITALS: BP 135/83; PULSE 90; RESP 17; TEMP 97.9; O2SAT 95
[2024-11-28] MEDS: LEVOTHYROXINE SODIUM 25 MCG TAB PO SCH (05:52)
[2024-11-28] MEDS: TACROLIMUS 1 MG CAP PO SCH (05:53)
[2024-11-28 06:13] LABS: Basophils # (auto) 0 10 ^3/uL (0-0.2); Basophils % (auto) 0.6 % (0.0-2.0); Eosinophils # (auto) 0.3 10 ^3/uL (0-0.8); Eosinophils % (auto) 3.7 % (0.0-7.0); Hematocrit 36.2 % (36.0-46.0); Hemoglobin 12.2 g/dL (12.2-16.2); Lymphocytes # (auto) 1.9 10 ^3/uL (0.4-5.4); Lymphocytes % (auto) 27.3 % (10.0-50.0); Mean Corpuscular Hemoglobin 31.8 pg (28.0-32.0); Mean Corpuscular Hgb Conc. 33.8 g/dL (32.0-36.0); Monocytes # (auto) 0.3 10 ^3/uL (0-1.3); Neutrophils # (auto) 4.3 10 ^3/uL (1.6-8.6); Neutrophils % (auto) 63.4 % (37.0-80.0); Platelet Count (auto) 251 10^3/uL (140-450); Red Blood Cells 3.85 10^6/uL (4.0-5.20); White Blood Cell 6.9 10^3/uL (4.4-10.8)
[2024-11-28 06:26] LABS: Alanine Aminotransferase 38 U/L (7-40); Anion Gap 9 (5-15); BUN/Creatinine Ratio 16.2 (10.0-20.0); Blood Urea Nitrogen 18 mg/dL (9-23); Calcium 9.5 mg/dL (8.7-10.4); Carbon Dioxide 21 mmol/L (20-31); Chloride 105 mmol/L (98-107); Potassium 4.2 mmol/L (3.5-5.1); Total Protein 7.1 g/dL (5.7-8.2)
[2024-11-28 06:27] LABS: Aspartate Aminotransferase 36 U/L (13-40)
[2024-11-28 06:28] LABS: Bilirubin, Total 0.9 mg/dL (0.2-1.0)
[2024-11-28 06:29] LABS: Alkaline Phosphatase 234 U/L (46-116); Glucose 259 mg/dL (74-106); Sodium 135 mmol/L (136-145)
[2024-11-28 09:00] VITALS: BP 159/86; PULSE 91; RESP 19; TEMP 98; O2SAT 95
[2024-11-28] MEDS: ENOXAPARIN SOD 40 MG/0.4 ML SYRINGE SC SCH (10:15)
[2024-11-28] MEDS ORDERED: VANCOMYCIN PER PHARMACY 0 MG IV SCH (12:15)
[2024-11-28] MEDS: SODIUM CHLORIDE 0.9% 1,000 ML IV SCH (12:44)
[2024-11-28] MEDS: VANCOMYCIN 1GM/200ML PM 250 ML IV SCH ×2 (12:45→20:50)
[2024-11-28 12:57] VITALS: BP 156/94; PULSE 85; RESP 19; TEMP 97.7; O2SAT 95
--- NOTE | 2024-11-28 15:36 | DVHPN2 ---
Subjective Better today. Reviewed: Care Plan, H&P, Labs, Medications, Previous Orders, Radiology Changes from previous H/P or p: No Changes Objective Vitals Vital Signs Date Time Temp Pulse Resp B/P (MAP) Pulse Ox O2 Delivery O2 Flow Rate FiO2 11/28/24 12:57 97.7 85 19 156/94 (114) 95 97.7 11/28/24 08:00 Room Air* 0 21 Intake/Output Intake and Output 11/28/24 07:00 Intake Total 240 ml Balance 240 ml Intake Oral 240 ml # Voids 4 General Appearance: Alert, Oriented X3, Cooperative, No acute distress HEENT: Atraumatic Lungs: Clear to auscultation Cardiovascular: Regular rate Abdomen: Soft Medications Current Medications Medications Dose Ordered Sig/Tami Route Start Time Stop Time Status Last Admin Dose Admin Piperacillin Sod/ Tazobactam Sod 100 ml @ 25 mls/hr Q8HR IV 11/27/24 14:00 11/28/24 05:50 25 MLS/HR Ondansetron HCl 4 mg Q4HP PRN IV 11/27/24 11:15 Enoxaparin Sodium 40 mg DAILY SC 11/28/24 10:00 11/28/24 10:15 40 MG Acetaminophen 650 mg Q6HP PRN PO 11/27/24 11:15 Tacrolimus 2 mg QAM PO 11/28/24 07:00 11/28/24 05:53 2 MG Tacrolimus 2 mg QPM PO 11/27/24 18:00 11/27/24 19:02 2 MG Benazepril HCl 40 mg DAILY PO 11/27/24 11:30 11/28/24 10:14 40 MG Levothyroxine Sodium 75 mcg QAM@0600 PO 11/28/24 06:00 11/28/24 05:52 75 MCG Ergocalciferol 50,000 unit QWEEKLY PO 11/30/24 11:30 Mycophenolate Mofetil 500 mg BID PO 11/27/24 22:00 11/28/24 10:14 500 MG Diagnostic Test (Pha) 1 strip ACHS 11/27/24 11:30 11/28/24 11:54 1 STRIP Dextrose 50 ml UD PRN IV 11/27/24 11:30 Sodium Chloride 1,000 ml @ 100 mls/hr Q10H IV 11/28/24 12:15 11/28/24 12:44 100 MLS/HR Vancomycin HCl 0 ml @ 0 mls/hr UD IV 11/28/24 12:15 Vancomycin HCl 250 ml @ 250 mls/hr Q8H IV 11/28/24 21:00 Diagnostic Test (Pha) 1 strip IQ4HR 11/28/24 16:00 UNV Insulin Human Regular IQ4HR SC 11/28/24 16:00 UNV Dextrose 50 ml UD PRN IV 11/28/24 15:45 UNV Laboratory Results Laboratory Tests 11/28/24 05:16 Chemistry Test 11/28/24 05:16 Albumin 4.0 g/dL (3.2-4.8) Calcium Level 9.5 mg/dL (8.7-10.4) Total Protein 7.1 g/dL (5.7-8.2) LFT Test 11/28/24 05:16 Alanine Aminotransferase (ALT) 38 U/L (7-40) Alkaline Phosphatase 234 U/L (46-116) H Aspartate Amino Transferase (AST) 36 U/L (13-40) Total Bilirubin 0.9 mg/dL (0.2-1.0) Urinalysis Test 11/27/24 06:00 Urine Color Light-yellow (Yellow) Urine Clarity Clear (Clear) Urine pH 5.5 (5.0-9.0) Urine Specific [place] 1.008 (1.001-1.035) Urine Protein 2+ (Negative) H Urine Ketones Negative (Negative) Urine Blood Trace /uL (Negative) H Urine Nitrite Negative (Negative) Urine Bilirubin Negative (Negative) Urine Urobilinogen Normal mg/dL (Negative) Urine Leukocyte Esterase Negative /uL (Negative) Urine RBC <1 /hpf (0 - 4) Urine Microscopic WBC 1 /HPF (0-5) Urine Squamous Epithelial Cells Few /hpf (<5) Urine Bacteria Few /hpf (None Seen) H Urine Glucose Normal mg/dL (Normal) Microbiology Microbiology Date/Time Source Procedure Growth Status 11/27/24 06:12 Blood Blood Culture - Preliminary Resulted Assessment/Plan Assessment/Plan Hypoglycemia Blood culture positive for Gram-positive cocci in clusters of unclear significance at this time Encephalopathy/resolved secondary to hypoglycemia possibly secondary to infection and bacteremia Diabetes Hypertension Dyslipidemia History of liver transplant Slightly red liver function tests History of left BKA Hypothyroidism History of DKA is Morbid obesity Plan: Repeat blood culture. Urine culture. IV vancomycin. Further plan per orders Plan discussed with: Patient My Orders Orders - MAITE MEAD MD Procedure Category Date Status Time Sodium Chloride 0.9% PHA 11/28/24 In Process 12:15 Vancomycin Per PHA 11/28/24 In Process Pharmacy 12:15 Urine Bacterial DORENE 11/28/24 Logged Culture 12:04 Vancomycin 1gm/250ml PHA 11/28/24 In Process Kit 21:00 Complete Blood Count LAB 11/29/24 Verified 04:00 Creatinine LAB 11/29/24 Verified 04:00 Vancomycin,Trough LAB 11/29/24 Verified 12:00 Vancomycin Per GUDELIA 11/29/24 In Process Pharmacy Protoc 12:00 Glucose Blood PHA 11/28/24 Transmitted (Accu-Chek Comfort 16:00 Mild Sliding Scale PHA 11/28/24 Transmitted 16:00 Dextrose 50% Syringe PHA 11/28/24 Transmitted 15:45 Date of Service: Nov 28, 2024 Billing Provider: MAITE MEAD MD Common Visit Codes: [id number] INP/OBS CARE(HIGH) MAITE MEAD MD Nov 28, 2024 15:36
[2024-11-28] MEDS ORDERED: DEXTROSE (50%) 50ML SYRG IV PRN ×2 (15:45→17:45)
[2024-11-28 17:00] VITALS: BP 155/85; PULSE 94; RESP 19; TEMP 97.9; O2SAT 95
[2024-11-28] MEDS: ACCU-CHEK COMFORT CURVE STRIP VI SCH ×2 (17:19→22:27)
[2024-11-28] MEDS: InsuLIN REG 1unit/0.01ml Soln (100units/ml) SC SCH ×2 (17:33→22:26)
[2024-11-28] MEDS: InsuLIN REG 1unit/0.01ml Soln (100units/ml) SC ONE (18:01)
[2024-11-28 21:00] VITALS: BP 150/87; PULSE 88; RESP 18; TEMP 97.6; O2SAT 94
[2024-11-28] MEDS: INSULIN LANTUS (GLARGINE) 1 /0.01ml (100units/ml) SC SCH (22:27)
[2024-11-29] VITALS (7 sets, daily range): BP systolic 145–184; BP diastolic 67–88; PULSE 62–81; RESP 16; TEMP 97.7–98.4; O2SAT 92–95
[2024-11-29 06:02] LABS: Basophils # (auto) 0 10 ^3/uL (0-0.2); Basophils % (auto) 0.6 % (0.0-2.0); Eosinophils # (auto) 0.4 10 ^3/uL (0-0.8); Eosinophils % (auto) 4.6 % (0.0-7.0); Hematocrit 35.3 % (36.0-46.0); Hemoglobin 11.9 g/dL (12.2-16.2); Lymphocytes # (auto) 1.9 10 ^3/uL (0.4-5.4); Lymphocytes % (auto) 24.8 % (10.0-50.0); Mean Corpuscular Hemoglobin 31.3 pg (28.0-32.0); Mean Corpuscular Hgb Conc. 33.6 g/dL (32.0-36.0); Mean Corpuscular Volume 92.9 fL (80.0-100.0); Monocytes # (auto) 0.5 10 ^3/uL (0-1.3); Monocytes % (auto) 5.9 % (0.0-12.0); Neutrophils % (auto) 64.1 % (37.0-80.0); Nucleated Red Blood Cells % 0.1 %; Platelet Count (auto) 256 10^3/uL (140-450); White Blood Cell 7.7 10^3/uL (4.4-10.8)
[2024-11-29] MEDS: InsuLIN REG 1unit/0.01ml Soln (100units/ml) SC SCH (06:24)
[2024-11-29] MEDS: VANCOMYCIN 1GM/200ML PM 250 ML IV SCH (09:33)
[2024-11-29] MEDS: PIPERACILLIN-TAZOB 3.375GM 100 ML IV SCH (11:45)
--- NOTE | 2024-11-29 14:01 | DVHPN2 ---
Subjective No pains Reviewed: Care Plan, H&P, Labs, Medications, Previous Orders, Radiology Changes from previous H/P or p: No Changes Objective Vitals Vital Signs Date Time Temp Pulse Resp B/P (MAP) Pulse Ox O2 Delivery O2 Flow Rate FiO2 11/29/24 09:33 157/80 11/29/24 09:00 97.9 80 16 95 97.9 11/29/24 08:00 Room Air* 0 21 Intake/Output Intake and Output 11/29/24 07:00 Intake Total 3180 ml Output Total 950 ml Balance 2230 ml Intake Oral 2030 ml IV Total 1150 ml Output Urine Total 950 ml # Voids 3 # Bowel Movements 2 General Appearance: Alert, Oriented X3, Cooperative, No acute distress HEENT: Atraumatic Lungs: Clear to auscultation Cardiovascular: Regular rate Abdomen: Soft Medications Current Medications Medications Dose Ordered Sig/Tami Route Start Time Stop Time Status Last Admin Dose Admin Ondansetron HCl 4 mg Q4HP PRN IV 11/27/24 11:15 Enoxaparin Sodium 40 mg DAILY SC 11/28/24 10:00 11/29/24 09:34 40 MG Acetaminophen 650 mg Q6HP PRN PO 11/27/24 11:15 Tacrolimus 2 mg QAM PO 11/28/24 07:00 11/29/24 06:23 2 MG Tacrolimus 2 mg QPM PO 11/27/24 18:00 11/28/24 18:01 2 MG Benazepril HCl 40 mg DAILY PO 11/27/24 11:30 11/29/24 09:33 40 MG Levothyroxine Sodium 75 mcg QAM@0600 PO 11/28/24 06:00 11/29/24 06:23 75 MCG Ergocalciferol 50,000 unit QWEEKLY PO 11/30/24 11:30 Mycophenolate Mofetil 500 mg BID PO 11/27/24 22:00 11/29/24 09:34 500 MG Sodium Chloride 1,000 ml @ 100 mls/hr Q10H IV 11/28/24 12:15 11/28/24 12:44 100 MLS/HR Vancomycin HCl 0 ml @ 0 mls/hr UD IV 11/28/24 12:15 Insulin Glargine 10 units HS SC 11/28/24 22:00 11/28/24 22:27 10 UNITS Diagnostic Test (Pha) 1 strip ACHS 11/28/24 22:00 11/29/24 11:36 1 STRIP Insulin Human Regular HS SC 11/28/24 22:00 11/28/24 22:26 8 UNITS Insulin Human Regular AC SC 11/29/24 07:00 11/29/24 11:36 6 UNITS Dextrose 50 ml UD PRN IV 11/28/24 17:45 Vancomycin HCl 250 ml @ 250 mls/hr Q8H IV 11/29/24 09:00 11/29/24 09:33 250 MLS/HR Piperacillin Sod/ Tazobactam Sod 100 ml @ 25 mls/hr Q6HR IV 11/29/24 12:00 11/29/24 11:45 25 MLS/HR Laboratory Results Laboratory Tests 11/28/24 05:16 11/29/24 05:18 Urinalysis Test 11/27/24 06:00 Urine Color Light-yellow (Yellow) Urine Clarity Clear (Clear) Urine pH 5.5 (5.0-9.0) Urine Specific [place] 1.008 (1.001-1.035) Urine Protein 2+ (Negative) H Urine Ketones Negative (Negative) Urine Blood Trace /uL (Negative) H Urine Nitrite Negative (Negative) Urine Bilirubin Negative (Negative) Urine Urobilinogen Normal mg/dL (Negative) Urine Leukocyte Esterase Negative /uL (Negative) Urine RBC <1 /hpf (0 - 4) Urine Microscopic WBC 1 /HPF (0-5) Urine Squamous Epithelial Cells Few /hpf (<5) Urine Bacteria Few /hpf (None Seen) H Urine Glucose Normal mg/dL (Normal) Microbiology Microbiology Date/Time Source Procedure Growth Status 11/27/24 06:12 Blood Blood Culture - Preliminary Resulted Assessment/Plan Assessment/Plan Hypoglycemia Blood culture positive for Gram-positive cocci in clusters of unclear significance at this time Encephalopathy/resolved secondary to hypoglycemia possibly secondary to infection and bacteremia Diabetes Hypertension Dyslipidemia History of liver transplant Slightly red liver function tests History of left BKA Hypothyroidism History of DKA is Morbid obesity Plan: Blood cultures both positive so far. Continue IV antibiotics. We will obtain echocardiogram. Continue current plan of care Plan discussed with: Patient My Orders Orders - MAITE MEAD MD Procedure Category Date Status Time Vancomycin Per GUDELIA 11/29/24 In Process Pharmacy Protoc 12:00 Blood Culture DORENE 11/28/24 In Process 15:34 Vancomycin 1gm/250ml PHA 11/29/24 In Process Kit 09:00 Vancomycin,Trough LAB 11/30/24 Verified 08:00 Complete Blood Count LAB 11/30/24 Verified 04:00 Creatinine LAB 11/30/24 Verified 04:00 Date of Service: Nov 29, 2024 Billing Provider: MAITE MEAD MD Common Visit Codes: [id number] INP/OBS CARE(HIGH) MAITE MEAD MD Nov 29, 2024 14:01
[2024-11-29 14:48] LABS: Erythrocyte Sedimentation Rate 45 mm/hr (0-20)
--- NOTE | 2024-11-29 15:11 | DVHSR ---
APPROVED REPORT EXAM: Two-dimensional and M-mode echocardiogram with Doppler and color Doppler. Blood Pressure: 157/80 mmHg INDICATION Rule out vegetations RISK FACTORS Obesity: Height: 5'6", Weight: 302 DIMENSIONS LVDd4.2 (3.8-5.7cm)LA (2D)4.0 (1.9-4.0cm)Aortic Root3.1 (2.0-3.7cm) LVDs2.9 (2.5-4.0cm)LA (MM) (1.9-4.0cm)Aortic Cusp Exc1.8 (1.5-2.0cm) EF (%) 60.0 (55-70%)Rt. Atrium3.7 (1.9-4.0cm)Asc. Aorta cm IVSd1.0 (0.7-1.1cm)RV (D) (1.8-2.4cm) PWd0.9 (0.7-1.1cm) Mitral Valve MitralMitral Stenosis E wave1.04m/sMV Mean GR.mmHg A wave0.77m/sMV Peak GR.mmHg E/A ratio1.42D MVAcm2 DECEL [id number] 1/2 Tim[place] Aortic Valve Aortic ValveAortic Stenosis V10.98m/Monica Mean GR.4mmHg V21.35m/Monica Peak GR.7mmHg LVOT Diameter1.9 (1.8-2.4cm)Doppler AVA2.06cm2 Pulmonic Valve V21.16m/s Tricuspid Valve TR Velocity2.91m/s [id number] Other Information Quality : LimitedRhythm : Technically limited study due to body habitus. Conclusion Sinus rhythm. Difficult acoustic windows Left atrial enlargement. Valves are normal. EF of 60% with normal RV function. Dopplers unremarkable. No pericardial effusion masses or vegetations.
[2024-11-29] MEDS: ACETAMINOPHEN 325 MG TAB PO PRN (20:26)
[2024-11-30] VITALS (7 sets, daily range): BP systolic 80–155; BP diastolic 80–129; PULSE 69–89; RESP 17–18; TEMP 97.1–98.6; O2SAT 93–97
[2024-11-30 06:58] LABS: Basophils # (auto) 0 10 ^3/uL (0-0.2); Basophils % (auto) 0.6 % (0.0-2.0); Eosinophils # (auto) 0.3 10 ^3/uL (0-0.8); Eosinophils % (auto) 4.2 % (0.0-7.0); Hemoglobin 12.2 g/dL (12.2-16.2); Lymphocytes # (auto) 1.8 10 ^3/uL (0.4-5.4); Lymphocytes % (auto) 21.8 % (10.0-50.0); Mean Corpuscular Hemoglobin 32.5 pg (28.0-32.0); Mean Corpuscular Hgb Conc. 34.9 g/dL (32.0-36.0); Monocytes # (auto) 0.4 10 ^3/uL (0-1.3); Monocytes % (auto) 4.9 % (0.0-12.0); Neutrophils # (auto) 5.6 10 ^3/uL (1.6-8.6); Neutrophils % (auto) 68.5 % (37.0-80.0); Nucleated Red Blood Cells % 0.1 %; Platelet Count (auto) 271 10^3/uL (140-450); Red Blood Cells 3.76 10^6/uL (4.0-5.20); Red Cell Distribution Width 13.8 % (11.8-14.3); White Blood Cell 8.1 10^3/uL (4.4-10.8)
[2024-11-30 07:07] LABS: Alanine Aminotransferase 30 U/L (7-40); Anion Gap 11 (5-15); Aspartate Aminotransferase 24 U/L (13-40); BUN/Creatinine Ratio 16.2 (10.0-20.0); Bilirubin, Total 0.8 mg/dL (0.2-1.0); Blood Urea Nitrogen 18 mg/dL (9-23); Calcium 9.8 mg/dL (8.7-10.4); Carbon Dioxide 20 mmol/L (20-31); Chloride 102 mmol/L (98-107); Potassium 4.2 mmol/L (3.5-5.1); Total Protein 7.3 g/dL (5.7-8.2)
[2024-11-30 07:09] LABS: Alkaline Phosphatase 214 U/L (46-116); Glucose 265 mg/dL (74-106); Sodium 133 mmol/L (136-145)
[2024-11-30] MEDS ORDERED: ERGOCALCIFEROL 50,000 UNIT(1.25MG) CAP PO SCH (11:30)
--- NOTE | 2024-11-30 21:16 | DVHPN2 ---
Subjective she wants to go home today and explained that we need to wait for repeat blood cx Reviewed: Care Plan, H&P, Labs, Medications, Previous Orders, Radiology Changes from previous H/P or p: No Changes Objective Vitals Vital Signs Date Time Temp Pulse Resp B/P (MAP) Pulse Ox O2 Delivery O2 Flow Rate FiO2 11/30/24 21:00 98.6 89 18 149/84 (105) 93 98.6 11/30/24 19:56 Room Air* 0 21 Intake/Output Intake and Output 11/30/24 07:00 Intake Total 2300 ml Balance 2300 ml Intake Oral 1600 ml IV Total 700 ml # Voids 8 # Bowel Movements 3 General Appearance: Alert, Oriented X3, Cooperative, No acute distress HEENT: Atraumatic Lungs: Clear to auscultation Cardiovascular: Regular rate Abdomen: Soft Medications Current Medications Medications Dose Ordered Sig/Tami Route Start Time Stop Time Status Last Admin Dose Admin Ondansetron HCl 4 mg Q4HP PRN IV 11/27/24 11:15 Enoxaparin Sodium 40 mg DAILY SC 11/28/24 10:00 11/30/24 09:41 40 MG Acetaminophen 650 mg Q6HP PRN PO 11/27/24 11:15 11/29/24 20:26 650 MG Tacrolimus 2 mg QAM PO 11/28/24 07:00 11/30/24 06:09 2 MG Tacrolimus 2 mg QPM PO 11/27/24 18:00 11/30/24 17:46 2 MG Benazepril HCl 40 mg DAILY PO 11/27/24 11:30 11/30/24 09:39 40 MG Levothyroxine Sodium 75 mcg QAM@0600 PO 11/28/24 06:00 11/30/24 05:28 75 MCG Ergocalciferol 50,000 unit QWEEKLY PO 11/30/24 11:30 Mycophenolate Mofetil 500 mg BID PO 11/27/24 22:00 11/30/24 09:37 500 MG Sodium Chloride 1,000 ml @ 100 mls/hr Q10H IV 11/28/24 12:15 11/28/24 12:44 100 MLS/HR Vancomycin HCl 0 ml @ 0 mls/hr UD IV 11/28/24 12:15 Insulin Glargine 10 units HS SC 11/28/24 22:00 11/29/24 22:49 10 UNITS Diagnostic Test (Pha) 1 strip ACHS 11/28/24 22:00 11/30/24 17:38 1 STRIP Insulin Human Regular HS SC 11/28/24 22:00 11/29/24 22:46 10 UNITS Insulin Human Regular AC SC 11/29/24 07:00 11/30/24 17:39 12 UNITS Dextrose 50 ml UD PRN IV 11/28/24 17:45 Piperacillin Sod/ Tazobactam Sod 100 ml @ 25 mls/hr Q6HR IV 11/29/24 12:00 11/30/24 17:44 25 MLS/HR Laboratory Results Laboratory Tests 11/30/24 05:38 Chemistry Test 11/30/24 05:38 Albumin 4.0 g/dL (3.2-4.8) Calcium Level 9.8 mg/dL (8.7-10.4) Total Protein 7.3 g/dL (5.7-8.2) LFT Test 11/30/24 05:38 Alanine Aminotransferase (ALT) 30 U/L (7-40) Alkaline Phosphatase 214 U/L (46-116) H Aspartate Amino Transferase (AST) 24 U/L (13-40) Total Bilirubin 0.8 mg/dL (0.2-1.0) Urinalysis Test 11/27/24 06:00 Urine Color Light-yellow (Yellow) Urine Clarity Clear (Clear) Urine pH 5.5 (5.0-9.0) Urine Specific [place] 1.008 (1.001-1.035) Urine Protein 2+ (Negative) H Urine Ketones Negative (Negative) Urine Blood Trace /uL (Negative) H Urine Nitrite Negative (Negative) Urine Bilirubin Negative (Negative) Urine Urobilinogen Normal mg/dL (Negative) Urine Leukocyte Esterase Negative /uL (Negative) Urine RBC <1 /hpf (0 - 4) Urine Microscopic WBC 1 /HPF (0-5) Urine Squamous Epithelial Cells Few /hpf (<5) Urine Bacteria Few /hpf (None Seen) H Urine Glucose Normal mg/dL (Normal) Microbiology Microbiology Date/Time Source Procedure Growth Status 11/29/24 15:11 Blood Blood Culture - Preliminary NO GROWTH AFTER 24 HOURS OF INCUBATION. Resulted Assessment/Plan Assessment/Plan Hypoglycemia Blood culture positive for Gram-positive cocci in clusters of unclear significance at this time Encephalopathy/resolved secondary to hypoglycemia possibly secondary to infection and bacteremia Diabetes Hypertension Dyslipidemia History of liver transplant Slightly red liver function tests History of left BKA Hypothyroidism History of DKA is Morbid obesity Plan: Blood cultures both positive so far. Continue IV antibiotics. Continue current plan of care Plan discussed with: Patient Date of Service: Nov 30, 2024 Billing Provider: KADEN HURLEY MD Common Visit Codes: [id number] INP/OBS CARE(HIGH) KADEN HURLEY MD Nov 30, 2024 21:16
[2024-12-01] VITALS (8 sets, daily range): BP systolic 119–159; BP diastolic 69–92; PULSE 76–85; RESP 17–20; TEMP 97.3–98.9; O2SAT 94–96
[2024-12-01 07:42] LABS: Basophils # (auto) 0.1 10 ^3/uL (0-0.2); Basophils % (auto) 0.8 % (0.0-2.0); Eosinophils # (auto) 0.3 10 ^3/uL (0-0.8); Eosinophils % (auto) 3.5 % (0.0-7.0); Hematocrit 36.1 % (36.0-46.0); Hemoglobin 12.3 g/dL (12.2-16.2); Lymphocytes # (auto) 1.9 10 ^3/uL (0.4-5.4); Lymphocytes % (auto) 23.5 % (10.0-50.0); Mean Corpuscular Hemoglobin 31.7 pg (28.0-32.0); Mean Corpuscular Hgb Conc. 34.1 g/dL (32.0-36.0); Monocytes # (auto) 0.5 10 ^3/uL (0-1.3); Monocytes % (auto) 5.8 % (0.0-12.0); Neutrophils # (auto) 5.5 10 ^3/uL (1.6-8.6); Neutrophils % (auto) 66.4 % (37.0-80.0); Nucleated Red Blood Cells % 0.2 %; Platelet Count (auto) 277 10^3/uL (140-450); Red Blood Cells 3.89 10^6/uL (4.0-5.20); Red Cell Distribution Width 13.9 % (11.8-14.3); White Blood Cell 8.3 10^3/uL (4.4-10.8)
--- NOTE | 2024-12-01 08:56 | MEDREC ---
[facility] ASP Intervention Section I [facility] ASP Intervention: Deescalate AB based on CS (PLEASE CONSIDER DE-ESCALATION BASED ON CULTURE RESULTS ) CONCEPCION VAEL PHARMACIST Dec 01, 2024 08:56
[2024-12-01] MEDS: VANCOMYCIN 1GM/200ML PM 200 ML IV ONE (11:27)
[2024-12-01] MEDS: LOSARTAN POTASSIUM 50 MG TAB PO SCH (18:15)
--- NOTE | 2024-12-01 19:17 | DVHPN2 ---
Subjective she wants to go home today and explained that we need to wait for repeat blood cx Reviewed: Care Plan, H&P, Labs, Medications, Previous Orders, Radiology Changes from previous H/P or p: No Changes Objective Vitals Vital Signs Date Time Temp Pulse Resp B/P (MAP) Pulse Ox O2 Delivery O2 Flow Rate FiO2 12/01/24 18:15 178/92 12/01/24 17:00 97.5 85 18 96 97.5 12/01/24 08:00 Room Air* 0 21 Intake/Output Intake and Output 12/01/24 07:00 Intake Total 1935 ml Balance 1935 ml Intake Oral 1635 ml IV Total 300 ml # Voids 4 # Bowel Movements 2 General Appearance: Alert, Oriented X3, Cooperative, No acute distress HEENT: Atraumatic Lungs: Clear to auscultation Cardiovascular: Regular rate Abdomen: Soft Medications Current Medications Medications Dose Ordered Sig/Tami Route Start Time Stop Time Status Last Admin Dose Admin Ondansetron HCl 4 mg Q4HP PRN IV 11/27/24 11:15 Enoxaparin Sodium 40 mg DAILY SC 11/28/24 10:00 12/01/24 09:06 40 MG Acetaminophen 650 mg Q6HP PRN PO 11/27/24 11:15 11/29/24 20:26 650 MG Tacrolimus 2 mg QAM PO 11/28/24 07:00 12/01/24 06:18 2 MG Tacrolimus 2 mg QPM PO 11/27/24 18:00 12/01/24 17:22 2 MG Benazepril HCl 40 mg DAILY PO 11/27/24 11:30 12/01/24 09:05 40 MG Levothyroxine Sodium 75 mcg QAM@0600 PO 11/28/24 06:00 12/01/24 05:29 75 MCG Ergocalciferol 50,000 unit QWEEKLY PO 11/30/24 11:30 Mycophenolate Mofetil 500 mg BID PO 11/27/24 22:00 12/01/24 09:06 500 MG Sodium Chloride 1,000 ml @ 100 mls/hr Q10H IV 11/28/24 12:15 11/28/24 12:44 100 MLS/HR Vancomycin HCl 0 ml @ 0 mls/hr UD IV 11/28/24 12:15 Insulin Glargine 10 units HS SC 11/28/24 22:00 11/30/24 21:28 10 UNITS Diagnostic Test (Pha) 1 strip ACHS 11/28/24 22:00 12/01/24 16:54 1 STRIP Insulin Human Regular HS SC 11/28/24 22:00 11/30/24 21:27 10 UNITS Insulin Human Regular AC SC 11/29/24 07:00 12/01/24 17:19 6 UNITS Dextrose 50 ml UD PRN IV 11/28/24 17:45 Vancomycin HCl 200 ml @ 200 mls/hr Q12H IV 12/02/24 00:00 Piperacillin Sod/ Tazobactam Sod 100 ml @ 25 mls/hr Q8H IV 12/02/24 01:00 Losartan Potassium 100 mg DAILY PO 12/01/24 18:15 12/01/24 18:15 100 MG Laboratory Results Laboratory Tests 11/30/24 05:38 12/01/24 05:58 Urinalysis Test 11/27/24 06:00 Urine Color Light-yellow (Yellow) Urine Clarity Clear (Clear) Urine pH 5.5 (5.0-9.0) Urine Specific [place] 1.008 (1.001-1.035) Urine Protein 2+ (Negative) H Urine Ketones Negative (Negative) Urine Blood Trace /uL (Negative) H Urine Nitrite Negative (Negative) Urine Bilirubin Negative (Negative) Urine Urobilinogen Normal mg/dL (Negative) Urine Leukocyte Esterase Negative /uL (Negative) Urine RBC <1 /hpf (0 - 4) Urine Microscopic WBC 1 /HPF (0-5) Urine Squamous Epithelial Cells Few /hpf (<5) Urine Bacteria Few /hpf (None Seen) H Urine Glucose Normal mg/dL (Normal) Microbiology Microbiology Date/Time Source Procedure Growth Status 11/29/24 15:11 Blood Blood Culture - Preliminary NO GROWTH AFTER 48 HOURS OF INCUBATION. Resulted Assessment/Plan Assessment/Plan Hypoglycemia Blood culture positive for Gram-positive cocci in clusters of unclear significance at this time Encephalopathy/resolved secondary to hypoglycemia possibly secondary to infection and bacteremia Diabetes Hypertension Dyslipidemia History of liver transplant Slightly red liver function tests History of left BKA Hypothyroidism History of DKA is Morbid obesity Plan: Blood cultures both positive so far. Continue IV antibiotics. Continue current plan of care Plan discussed with: Patient Date of Service: Dec 01, 2024 Billing Provider: KADEN HURLEY MD Common Visit Codes: [id number] INP/OBS CARE(HIGH) KADEN HURLEY MD Dec 01, 2024 19:17
[2024-12-02] MEDS: VANCOMYCIN 1GM/200ML PM 200 ML IV SCH (00:08)
[2024-12-02] MEDS: PIPERACILLIN-TAZOB 3.375GM 100 ML IV SCH (02:44)
[2024-12-02 08:00] VITALS: RESP 18
[2024-12-02 08:43] VITALS: BP 133/80; PULSE 77; RESP 19; TEMP 98.1; O2SAT 92
[2024-12-02] MEDS ORDERED: CIPR-173 PO (11:12)
[2024-12-02 12:35] VITALS: BP 148/92; PULSE 85; RESP 19; TEMP 97.7; O2SAT 94
[2024-12-02 12:49] VITALS: BP 143/71; PULSE 85; RESP 19; TEMP 97.7; O2SAT 94
[2024-12-02] MEDS ORDERED: cefTRIAXone 1GM/50ML D5W 50 ML IV SCH (14:00)
== END 2024-12-02 14:12 | disposition home or self-care (01) | DRG 420 ==
LOC: EDBD 04:24 → ER 04:24 → OVERFLOW 11:13 → EAST 11:15
PROVIDERS: ADMIT Hospitalist; ATTEND Hospitalist
DX: E11.649 Type 2 diabetes mellitus with hypoglycemia without coma (principal); R65.11 Systemic inflammatory response syndrome (SIRS) of non-infectious origin with acute organ dysfunction; G93.41 Metabolic encephalopathy; N17.9 Acute kidney failure, unspecified; Z94.4 Liver transplant status; E78.5 Hyperlipidemia, unspecified; E66.01 Morbid (severe) obesity due to excess calories; E87.6 Hypokalemia; E03.9 Hypothyroidism, unspecified; I10 Essential (primary) hypertension; R74.01 Elevation of levels of liver transaminase levels; Z89.512 Acquired absence of left leg below knee; Z86.16 Personal history of COVID-19; Z83.3 Family history of diabetes mellitus; Z82.49 Family history of ischemic heart disease and other diseases of the circulatory system; Z87.01 Personal history of pneumonia (recurrent); Z68.42 Body mass index [BMI] 45.0-49.9, adult; Z79.899 Other long term (current) drug therapy; Z79.4 Long term (current) use of insulin; Z79.84 Long term (current) use of oral hypoglycemic drugs
CPT/HCPCS: 36415; 71045; 80053; 80202; 81001; 82565; 82962; 83036; 83605; 83735; 85025; 85652; 87040; 87077; 87186; 87426; 87804; 93306; 96365; 99291; G0378; J1815; J2543; J7507; J7517

== ENCOUNTER 2025-05-09 08:52 | Emergency (ER) | payer OTHER ==
[~2025-05-09] VITALS: Ht 167.6 cm; Wt 95.0 kg
[~2025-05-09 08:52] MED LIST changes: +CIPR-173 PO; +ERGO1CAP12 PO; +MYCO500T3 PO
[2025-05-09 10:04] LABS: Hematocrit 37.7 % (36.0-46.0); Hemoglobin 12.9 g/dL (12.2-16.2); Mean Corpuscular Hemoglobin 32.0 pg (28.0-32.0); Mean Corpuscular Volume 93.2 fL (80.0-100.0); Nucleated Red Blood Cells % 0.0 %
[2025-05-09 10:08] LABS: Chloride 104 mmol/L (98-107); Potassium 4.3 mmol/L (3.5-5.1)
[2025-05-09 10:09] LABS: Anion Gap 10 (5-15); Calcium 9.2 mg/dL (8.7-10.4)
[2025-05-09 10:14] LABS: BUN/Creatinine Ratio 24.6 (10.0-20.0)
[2025-05-09 10:15] LABS: Blood Urea Nitrogen 29 mg/dL (9-23); Carbon Dioxide 20 mmol/L (20-31); Glucose 225 mg/dL (74-106); Sodium 134 mmol/L (136-145)
[2025-05-09 10:57] LABS: Urine Protein, UAD 1+ (Negative)
--- NOTE | 2025-05-09 11:38 | ED.PDOC ---
GI ASSESSMENT HPI Comments This is a pleasant 39-year-old with history of liver transplant, with the concerns of a possible infection following an episode of diarrhea. She experienced diarrhea for two weeks which has since resolved. However she is concerned about the possibility of an infection. No other complaint or concern Chief Complaint: Diarrhea Time Seen by MD: 08:59 Primary Care Provider: UNK Reviewed Notes: Nurses Notes, Medications, Allergies Allergies: Coded Allergies: NO KNOWN ALLERGIES (Unverified , 07/31/20) Home Meds Active Scripts Ciprofloxacin Hcl (Cipro) 500 Mg Tab, 500 MG PO BID for 10 Days, #20 TAB Prov:KADEN HURLEY MD 12/02/24 Reported Medications Ergocalciferol (Vitamin D) 50,000 Unit Cap, 1 CAP PO QWEEKLY 11/27/24 Mycophenolate Mofetil (Mycophenolate Mofetil) 500 Mg Tab, 1 TAB PO BID 11/27/24 Tacrolimus (Tacrolimus) 1 Mg Cap, 3 MG PO QPM, CAP 02/04/20 Tacrolimus (Tacrolimus) 1 Mg Cap, 2 MG PO QAM, CAP 02/04/20 Insulin Lispro (Admelog) 100 Unit/Ml Inj 02/04/20 Benazepril Hcl (Benazepril Hcl) 40 Mg Tab 02/04/20 Insulin Glargine (Lantus) 100 Unit/Ml Inj, 14 UNIT SC BID, INJ 02/04/20 Metformin Hydrochloride (Metformin Hcl) 1,000 Mg Tab 02/04/20 Levothyroxine Sodium (Levothyroxine Sodium) 75 Mcg Tab 12/03/18 Information Source: Patient Mode of Arrival: Ambulatory Past Medical History PAST MEDICAL HISTORY: DM, High Lipids, HTN, Thyroid Family History Family History: Family hx of DM, Family hx of HTN Social History Smoker: Non-Smoker Alcohol: Denies ETOH Use Drugs: Denies Drug Use Lives In: Home All Other Systems: Reviewed and Negative Physical Exam General Appearance: No Apparent Distress, Normal HEENT: Normal ENT Inspection, Pharynx Normal, TMs Normal Neck: Full Range of Motion, Non-Tender, Normal, Normal Inspection Respiratory: Chest Non-Tender, Lungs Clear, No Accessory Muscle Use, No Respiratory Distress, Normal Breath Sounds Cardiovascular: No Edema, No JVD, No Murmur, No Gallop, Normal Peripheral Pulses, Regular Rate/Rhythm Breast Exam: Deferred Gastrointestinal: No Organomegaly, Non Tender, No Pulsatile Mass, Normal Bowel Sounds, Soft Genitalia: Deferred Pelvic: Deferred Rectal: Deferred Extremities: No calf tenderness, Normal capillary refill, Normal inspection, Normal range of motion, Non-tender, No pedal edema Musculoskeletal : Apperance: Normal Neurologic: Alert, physical science technician II-XII nml as Tested, No Motor Deficits, Normal Affect, Normal Mood, No Sensory Deficits Cerebellar Function: Normal Reflexes: Normal Skin: Dry, Normal Color, Warm Lymphatic: No Adenopathy Was a procedure done? Was a procedure done?: No GI differential Dx Differential Diagnosis: Viral X-Ray, Labs, Meds, VS Vital Signs Date Time Temp Pulse Resp B/P (MAP) Pulse Ox O2 Delivery O2 Flow Rate FiO2 05/09/25 08:55 97.7 106 16 157/77 98 97.7 Lab Test 05/09/25 09:50 05/09/25 09:48 Range/Units White Blood Count 9.3 4.4-10.8 10^3/uL Red Blood Count 4.05 4.0-5.20 10^6/uL Hemoglobin 12.9 12.2-16.2 g/dL Hematocrit 37.7 36.0-46.0 % Mean Corpuscular Volume 93.2 80.0-100.0 fL Mean Corpuscular Hemoglobin 32.0 28.0-32.0 pg Mean Corpuscular Hemoglobin Concent 34.3 32.0-36.0 g/dL Red Cell Distribution Width 13.4 11.8-14.3 % Platelet Count 255 140-450 10^3/uL Mean Platelet Volume 8.7 6.9-10.8 fL Neutrophils (%) (Auto) 76.3 37.0-80.0 % Lymphocytes (%) (Auto) 15.5 10.0-50.0 % Monocytes (%) (Auto) 4.0 0.0-12.0 % Eosinophils (%) (Auto) 3.4 0.0-7.0 % Basophils (%) (Auto) 0.8 0.0-2.0 % Neutrophils # (Auto) 7.1 1.6-8.6 10 ^3/uL Lymphocytes # (Auto) 1.4 0.4-5.4 10 ^3/uL Monocytes # (Auto) 0.4 0-1.3 10 ^3/uL Eosinophils # (Auto) 0.3 0-0.8 10 ^3/uL Basophils # (Auto) 0.1 0-0.2 10 ^3/uL Nucleated Red Blood Cells 0.0 % Sodium Level 134 L 136-145 mmol/L Potassium Level 4.3 3.5-5.1 mmol/L Chloride Level 104 98-107 mmol/L Carbon Dioxide Level 20 20-31 mmol/L Anion Gap 10 5-15 Blood Urea Nitrogen 29 H 9-23 mg/dL Creatinine 1.18 H 0.550-1.02 mg/dL Glomerular Filtration Rate Calc 60 >90 mL/min BUN/Creatinine Ratio 24.6 H 10.0-20.0 Serum Glucose 225 H 74-106 mg/dL Calcium Level 9.2 8.7-10.4 mg/dL Urine Color Colorless Yellow Urine Clarity Clear Clear Urine pH 6.0 5.0-9.0 Urine Specific [place] 1.010 1.001-1.035 Urine Protein 1+ H Negative Urine Ketones Negative Negative Urine Blood Negative Negative /uL Urine Nitrite Negative Negative Urine Bilirubin Negative Negative Urine Urobilinogen Normal Negative mg/dL Urine Leukocyte Esterase Negative Negative /uL Urine RBC 1 0 - 4 /hpf Urine Microscopic WBC 1 0-5 /HPF Urine Squamous Epithelial Cells Few <5 /hpf Urine Bacteria None seen None Seen /hpf Urine Glucose 2+ H Normal mg/dL X-Ray, Labs, Meds, VS Comment After history no red flags. Symptoms are consistent with a viral infection The patient able to maintain fluids. Nontoxic non ill-appearing Recommended aggressive hydration with water and electrolytes Discussed importance of hydration and adherence to BRAT Diet, avoiding greasy and spicy food ED precautions if no improvement . Patient is stable for discharge at this time. External notes reviewed. Test results and diagnostic imaging interpreted. All diagnostic findings, discharge care, education and instructions provided Follow-up with PCP in 2 to 3 days Patient verbalized understanding and agreed to treatment plan Vital signs stable, afebrile, no acute distress noted Patient ambulatory with strong steady gait Advised to return precautions for any new or worsening symptoms, return to ER immediately for re-evaluation Patient is aware that the purpose of this visit was for an acute medical emergency requiring emergent stabilization. Chronic conditions, including malignancies have not been ruled out. Patient is instructed to follow up with PCP as directed and discharge instructions for continued care and workup. If unable to arrange follow-up, patient is to return to the emergency department for reassessment. Patient (parent or legal guardian if applicable) was given verbal and written discharge instructions and acknowledges understanding. Time of 1ST Reevaluation: 11:36 Reevaluation 1ST: Improved Patient Education/Counseling: Diagnosis, Treatment Family Education/Counseling: No Family Present SEPSIS Sepsis Screen Date sepsis recognized/suspect: May 09, 2025 Time Sepsis recognized/suspect: 854 Recent Procedure: No On Antibiotic Therapy: No Respiratory Rate >20: No Heart Rate >90: Yes Temp<36 C (96.8 F) or >38.3 C: No SBP <90 or MAP <65 mmHG: No New Acute Mental Status Change: No Is the patient on CPAP, BIPAP,: No Vital Signs Date Time Temp Pulse Resp B/P (MAP) Pulse Ox O2 Delivery O2 Flow Rate FiO2 05/09/25 08:55 97.7 106 16 157/77 98 97.7 Laboratory Tests Test 05/09/25 09:50 White Blood Count 9.3 10^3/uL (4.4-10.8) Departure 1 Departure Time of Disposition: 11:37 Impression: Primary Impression: Diarrhea Qualified Codes: R19.7 - Diarrhea, unspecified Disposition: 01 HOME / SELF CARE / HOMELESS Condition: Stable Discharged With: Self Critical Care Note Critical Care Time?: No Stability Stability form required: No Heart Score Heart Score: Heart Score Response (Comments) Value History N/A 0 EKG N/A 0 Age N/A 0 Risk Factors N/A 0 Troponin N/A 0 Total 0 MIRTHA REEDER E MARKETING SPECIALIST May 09, 2025 11:38
[2025-05-09 11:45] VITALS: BP 148/73; PULSE 100; RESP 17; TEMP 98; O2SAT 98
== END 2025-05-09 11:49 | disposition home or self-care (01) ==
LOC: EDBD 08:52 → ER 08:52
DX: R19.7 Diarrhea, unspecified (principal); E11.9 Type 2 diabetes mellitus without complications; I10 Essential (primary) hypertension; E78.5 Hyperlipidemia, unspecified; Z94.4 Liver transplant status; Z79.624 Long term (current) use of inhibitors of nucleotide synthesis; Z79.621 Long term (current) use of calcineurin inhibitor; Z79.899 Other long term (current) drug therapy; Z79.4 Long term (current) use of insulin
CPT/HCPCS: 36415; 80048; 81001; 85025